=== PATIENT | female | born 1980 | race Caucasian/White ===

== ENCOUNTER → 2016-03-31 | Outpatient (CLI) | payer OTHER ==
[2016-03-31 08:12] LABS: Basophils # (A) 0.1 k/uL (0-0.2); Basophils % (A) 1 %; CH 28.7; CHCM 33.7; Eosinophils # (A) 0.1 k/uL (0-0.7); Eosinophils % (A) 1 %; HCT 45.3 % (34.0-46.0); HDW 2.82; HGB 14.6 gm/dL (11.4-16.0); Luc % (Auto) 1; Lymphocytes # (A) 2.1 k/uL (1.0-4.8); Lymphocytes % (A) 28 %; MCH 27.6 pg (25.0-35.0); MCHC 32.2 g/dL (31.0-37.0); MCV 85.8 fL (80.0-100.0); Mean Platelet Volume 7.2; Monocytes # (A) 0.4 k/uL (0-1.0); Monocytes % (A) 6 %; Neutrophils # (A) 4.7 k/uL (1.3-7.7); Neutrophils % (A) 63 %; RBC 5.28 m/uL (3.80-5.40); RDW 13.7 % (11.5-15.5); WBC 7.5 k/uL (3.8-10.6); WBC (Perox) 7.24
[2016-03-31 08:38] LABS: ALT 60 U/L (9-52); AST 32 U/L (14-36); Alkaline Phosphatase 65 U/L (38-126); Anion Gap 13 mmol/L; Blood Urea Nitrogen 14 mg/dL (7-17); Calcium 9.9 mg/dL (8.4-10.2); Carbon Dioxide 26 mmol/L (22-30); Chloride 105 mmol/L (98-107); Cholesterol 205 mg/dL (<200); Glucose 99 mg/dL (74-99); HDL Cholesterol 47 mg/dL (40-60); Non-African American GFR(MDRD) >60 (>60 ml/min/1.73 sqM); Potassium 4.8 mmol/L (3.5-5.1); Sodium 144 mmol/L (137-145); Total Bilirubin 0.5 mg/dL (0.2-1.3); Total Protein 7.8 g/dL (6.3-8.2); Triglycerides 135 mg/dL (<150)
== END | disposition home or self-care (01) ==
LOC: MERGE 07:28 → LABWHC1 07:28
PROVIDERS: ATTEND Family Medicine
DX: Z00.00 Encounter for general adult medical examination without abnormal findings (principal)
CPT/HCPCS: 36415; 80053; 80061; 84443; 85025

== ENCOUNTER → 2016-04-01 | Outpatient (CLI) | payer OTHER ==
--- NOTE | 2016-04-01 22:53 | MR ---
EXAMINATION TYPE: MR angio head wo con DATE OF EXAM: 04/01/2016 6:36 PM COMPARISON: NONE HISTORY: Headaches,pseudotumors,papilledema Utilizing 3-D [id number] intracranial MRA of the r[place] of [place] was performed. The vertebrobas ilar and carotid systems are patent. There is no sizable aneurysm or vascular malformation. 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 Vertebral arteries are symmetric in size. IMPRESSION: 1. No evidence of vascular malformation or sizable aneurysm.
--- NOTE | 2016-04-01 22:53 | MR ---
MRI of the brain with and without contrast HISTORY: Headaches.T1-weighted sagittal, T2, FLAIR, and diffusion axial, postcontrast T1 axial and co hakeem views of the brain are submitted. CONTRAST: 15 cc MultiHance COMPARISON: CT brain 06/27/2010 FINDINGS: There is no evidence of acute ischemia. The ventricles, basal cisterns, and sulci overlying the co nvexities are consistent with the patient's age. There is no mass effect or enhancing mass. Craniocervical junction is maintained. There is a partially empty sella turcica. No cerebellopontine angle mass. There is normal enhancement of the visualized vasculature including t he dural venous sinuses. No enhancing mass. No midline shift. There are changes of chronic sinusitis. White matter: There are approximately 15 areas of abnormal signal throughout the white matter. Lesion s measure 5 mm or less. No enhancing lesions. No lesions perpendicular to the ventricular system. No callosal lesions. IMPRESSION: 1. No acute intracranial process. 2. Nonspecific very mild white matter changes. Differential include migraine headaches. Demyelinating process or remote microvascular ischemia not excluded. 3. Extensive chronic sinusitis.
== END | disposition home or self-care (01) ==
LOC: RADMRIMAIN 17:40 → MERGE 17:45
PROVIDERS: ATTEND Psychiatry & Neurology Neurology
DX: R90.82 White matter disease, unspecified (principal); J32.9 Chronic sinusitis, unspecified
CPT/HCPCS: 70544; 70553; A9577

== ENCOUNTER 2016-04-22 11:20 | Day surgery (SDC) | payer OTHER ==
[~2016-04-22 11:20] MED LIST: SODIUM CHLORIDE 0.9% 250 ML in EMPTY BAG 1 BAG IV PRN; SODIUM CHLORIDE 0.9% 500 ML in EMPTY BAG 1 BAG IV PRN
[2016-04-22 11:51] VITALS: TEMP 97.7
[2016-04-22] MEDS ORDERED: LACTATED RINGERS 1,000 ML IV SCH (12:15)
[2016-04-22 14:00] VITALS: BP 136/83; PULSE 73; RESP 14
[2016-04-22 14:55] LABS: Glucose,CSF 54 mg/dL (40-70)
[2016-04-22 15:01] LABS: Appearance,CSF Clear
--- NOTE | 2016-04-22 15:12 | P.PCN ---
Date of Procedure: 04/22/16 Procedure(s) Performed: Preoperative diagnosis: Pseudotumor cerebri . Post operative diagnoses: Pseudotumor cerebri. Anesthesia local infiltration with lidocaine 1% 2 mL. and Versed 2 mg and fentanyl 100 g Condition: stable Complication: none. Indication for the procedure= 35 years old female with a history of headache, and she was evaluated by a neurologist Dr. Win and he suspected that patient had pseudotumor cerebri, and they recommend lumbar puncture with removal of 14- 20 mL of cerebrospinal fluid Description of the procedure procedure risk and benefits discussed with the patient , consent signed. Patient and the procedure area placed in left lateral position , back prepped with chlorhexidine 3 times been local infiltration of the skin and subcutaneous tissue with lidocaine 1% 2 mL for skin and subcu interstitial frustrations at L4- 5 levels then 22-gauge Quincke- type needle advanced slowly at L4- 5 interlaminar space there was positive cerebrospinal fluid which was clear, no heme, no paresthesia , the opening pressure was 50 cm of water ,total of 20 ML of clear cerebrospinal fluid collected in 4 different tubes , the closing pressure was 19 cm of water , then the needle removed and a Band-Aid applied and patient tolerated the procedure well without any complications. Opening pressure = 50 cm of water. Closing pressure= 19 cm of water. Volume removed = 20 mL of clear cerebrospinal fluid
[2016-04-22] MEDS ORDERED: MIDAZOLAM 2 MG/2 ML VIAL IV ONE (23:00)
[2016-04-22] MEDS ORDERED: fentaNYL (PF) 50 MCG/ML 2 ML AMP IV ONE (23:00)
== END 2016-04-22 14:55 ==
LOC: PROCWHC3 11:20
PROVIDERS: ATTEND Psychiatry & Neurology Neurology
DX: G93.2 Benign intracranial hypertension (principal)
CPT/HCPCS: 88108; 84157; 82945; 89050; 81025; 62270; J2250; J3010

== ENCOUNTER 2017-05-04 19:47 | Emergency (ER) | payer OTHER ==
[2017-05-04 19:55] VITALS: RESP 18
--- NOTE | 2017-05-04 20:19 | ED ---
Upper Extremity HPI - General Chief Complaint: Extremity Injury, Upper Stated Complaint: [facility] FINGER INJURY Time Seen by Provider: 05/04/17 19:56 Source: patient, RN notes reviewed, old records reviewed Mode of arrival: ambulatory Limitations: no limitations - History of Present Illness Initial Comments: This patient is a 36-year-old female with chief complaint of right distal middle finger pain. Patient reports that at work today she slammed her finger tip of her finger in a door. She reports she has small abrasion over the edge of the nail bed. She reports that her nail bed is intact. She states that she has range of motion. She is concerned due to the swelling and thought that there may be a small fracture. She denies any other symptoms. - Related Data Previous Rx's Medication Instructions Recorded Ciprofloxacin HCl [Cipro] 500 mg PO Q12HR #14 tablet 03/03/17 HYDROcodone/APAP 5-325MG [Bergoo 1 - 2 tab PO Q4H PRN #15 tab 03/03/17 5-325] Ketorolac [Toradol] 10 mg PO Q6HR #20 tab 03/03/17 Ondansetron Odt [Zofran Odt] 4 mg PO Q8HR PRN #12 tab 03/03/17 Tamsulosin [Flomax] 0.4 mg PO DAILY #7 cap 03/03/17 Allergies Allergy/AdvReac Type Severity Reaction Status Date / Time No Known Allergies Allergy Verified 05/04/17 19:55 Review of Systems ROS Statement: Those systems with pertinent positive or pertinent negative responses have been documented in the HPI. ROS Other: All systems not noted in ROS Statement are negative. 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 Absent: scleral icterus, conjunctival injection, periorbital swelling ENT exam: Present: normal exam, mucous membranes moist Neck exam: Present: normal inspection. Absent: tenderness, meningismus, lymphadenopathy Respiratory exam: Present: normal lung sounds bilaterally. Absent: respiratory distress, wheezes, rales, rhonchi, stridor Cardiovascular Exam: Present: regular rate, normal rhythm, normal heart sounds. Absent: systolic murmur, diastolic murmur, rubs, gallop, clicks GI/Abdominal exam: Present: soft, normal bowel sounds. Absent: distended, tenderness, guarding, rebound, rigid Extremities exam: Present: normal inspection, full ROM, normal capillary refill. Absent: tenderness, pedal edema, joint swelling, calf tenderness Right Hand Wrist exam: Present: full ROM, swelling (over distal right tip of 3rd finger). Absent: normal inspection (abrasion over distal dorsum of right middle finger) Hand L/R Front: 1 - other (bruise) Hand L/R Back: 1 - small abrasion Back exam: Present: normal inspection Neurological exam: Present: alert, oriented X3, CN II-XII intact Psychiatric exam: Present: normal affect, normal mood Skin exam: Present: warm, dry, intact, normal color. Absent: rash Course Vital Signs 05/04/17 19:52 Temperature 97.6 F Pulse Rate 82 Respiratory 18 Rate Blood Pressure 177/92 O2 Sat by Pulse 97 Oximetry Medical Decision Making - Medical Decision Making Patient is a 36-year-old female chief complaint of slamming her right middle finger in a door work today. She has a small abrasion over the dorsum of the proximal phalanx. Patient x-ray was reviewed and negative for acute process. She does have range of motion including flexion and extension, no evidence of tendon disruption. Patient informed of these results will this earlier gait. Discussed that appears to be closing well at this time. Discussed icing it and taking Motrin however pain. Patient is history plan will comply. Return parameters were discussed. - Radiology Data Radiology results: report reviewed Right middle finger x-rays negative for any acute fracture. Disposition Clinical Impression: Fingertip contusion, Finger abrasion Disposition: HOME SELF-CARE Condition: Good Instructions: Abrasion (ED) Additional Instructions: As well as a little follow-up on its own. Keep the wound covered. Wear the splint. Return to emergency department if any alarming signs or symptoms occur. Referrals: Mauricio Plascencia MD [Primary Care Provider] - 1-2 days Time of Disposition: 20:46
--- NOTE | 2017-05-04 20:19 | XR ---
EXAMINATION TYPE: XR finger RT DATE OF EXAM: 05/04/2017 COMPARISON: NONE HISTORY: Pain after an injury TECHNIQUE: 3 views FINDINGS: I see no definite fracture nor dislocation. Joint spaces are fairly normal. IMPRESSION: Negative right middle finger exam.
[2017-05-04] MEDS ORDERED: TOPICAL SKIN ADHESIVE 1 EACH AMP TOPICAL ONE (20:35)
[2017-05-04 20:58] VITALS: BP 143/94; PULSE 80; TEMP 98.2
== END 2017-05-04 20:59 | disposition home or self-care (01) ==
LOC: EC 19:47
DX: S60.031A Contusion of right middle finger without damage to nail, initial encounter (principal); Z87.891 Personal history of nicotine dependence; W23.0XXA Caught, crushed, jammed, or pinched between moving objects, initial encounter; Y99.0 Civilian activity done for income or pay
CPT/HCPCS: 99284

== ENCOUNTER → 2018-02-28 | Outpatient (CLI) | payer OTHER ==
[2018-02-28 08:45] LABS: Basophils % (A) 1 %; Eosinophils # (A) 0.1 k/uL (0-0.7); Eosinophils % (A) 1 %; HCT 42.5 % (34.0-46.0); HGB 14.8 gm/dL (11.4-16.0); Lymphocytes # (A) 3.1 k/uL (1.0-4.8); Lymphocytes % (A) 41 %; MCH 29.7 pg (25.0-35.0); MCHC 34.9 g/dL (31.0-37.0); MCV 85.3 fL (80.0-100.0); Mean Platelet Volume 6.5; Monocytes # (A) 0.4 k/uL (0-1.0); Monocytes % (A) 5 %; Neutrophils # (A) 3.8 k/uL (1.3-7.7); Neutrophils % (A) 51 %; Platelet Count 248 k/uL (150-450); RBC 4.99 m/uL (3.80-5.40); RDW 13.7 % (11.5-15.5); WBC 7.6 k/uL (3.8-10.6)
[2018-02-28 09:50] LABS: Erythrocyte Sedimentation Rate 8 mm/hr (0-20)
[2018-02-28 15:59] LABS: Iron Saturation 18.58 (12.00-45.00)
[2018-02-28 16:07] LABS: Vitamin D 25 Hydroxy 18.8 ng/mL (30.0-100.0)
[2018-02-28 16:15] LABS: Albumin 4.6 g/dL (3.80-4.90); Albumin/Globulin Ratio 2.09 (1.20-2.10); Anion Gap 9.2 mmol/L (4.00-12.00); Calcium 9.5 mg/dL (8.7-10.3); Carbon Dioxide 22.8 mmol/L (21.6-31.8); Globulin 2.2 g/dL (2.1-3.7); Total Bilirubin 0.4 mg/dL (0.3-1.2); Total Protein 6.8 g/dL (6.2-8.2)
== END | disposition home or self-care (01) ==
LOC: LABWHC1 07:47
PROVIDERS: ATTEND Family Medicine
DX: Z00.00 Encounter for general adult medical examination without abnormal findings (principal); R53.83 Other fatigue
CPT/HCPCS: 36415; 80053; 80061; 82306; 82607; 82728; 83540; 83550; 84443; 85025; 85652

== ENCOUNTER → 2018-03-02 | Outpatient (CLI) | payer OTHER ==
--- NOTE | 2018-03-03 10:12 | MM ---
Reason for exam: screening (asymptomatic). Baseline mammogram. History: Patient is nulliparous. Family history of breast cancer in maternal grandmother at age 45. Physical Findings: Nurse did not find any significant physical abnormalities on exam. MG 3D Screening Mammo W/Cad Bilateral CC and MLO view(s) were taken. There are scattered fibroglandular densities. Finding: There is a 9 mm circumscribed round mass in the lower inner quadrant, anterior middle position of the left breast. These results were verbally communicated with the patient and result sheet given to the patient on 03/02/18. ASSESSMENT: Incomplete: need additional imaging evaluation, BI-RAD 0 RECOMMENDATION: Ultrasound of the left breast.
--- NOTE | 2018-03-03 10:13 | USB ---
Reason for exam: additional evaluation requested from abnormal screening. History: Patient is nulliparous. Family history of breast cancer in maternal grandmother at age 45. Physical Findings: Breast exam preformed at baseline screening. US Breast Workup Limited LT Left limited breast ultrasound including focal area of concern, retroareolar and axilla is negative. These results were verbally communicated with the patient and result sheet given to the patient on 03/02/18. ASSESSMENT: Incomplete: need additional imaging evaluation, BI-RAD 0 RECOMMENDATION: Special view mammogram of the left breast.
--- NOTE | 2018-03-03 10:15 | MM ---
Reason for exam: additional evaluation requested from abnormal screening. History: Patient is nulliparous. Family history of breast cancer in maternal grandmother at age 45. Physical Findings: Breast exam preformed at baseline screening. MG 3D Work Up W/Cad LT Spot compression CC, spot compression MLO, and LM view(s) were taken of the left breast. There are scattered fibroglandular densities. The focal density is not as focal on LM view and tomosynthesis. These results were verbally communicated with the patient and result sheet given to the patient on 03/02/18. ASSESSMENT: Probably benign, BI-RAD 3 RECOMMENDATION: Follow-up diagnostic mammogram of the left breast in 6 months.
== END ==
LOC: RADMAMWWP 14:57
PROVIDERS: ATTEND Obstetrics & Gynecology
DX: Z12.31 Encounter for screening mammogram for malignant neoplasm of breast (principal); R92.8 Other abnormal and inconclusive findings on diagnostic imaging of breast
CPT/HCPCS: 77061; 77063; 77065; 77067

== ENCOUNTER → 2018-10-16 | Outpatient (CLI) | payer OTHER ==
--- NOTE | 2018-10-19 09:59 | MM ---
Reason for exam: follow-up at short interval from prior study. Last mammogram was performed 8 months ago. History: Patient is nulliparous. Family history of breast cancer in maternal grandmother at age 45. Physical Findings: Nurse did not find any significant physical abnormalities on exam. MG 3D Diag Mammo W/Cad LT CC and MLO view(s) were taken of the left breast. Prior study comparison: March 02, 2018, left breast MG 3d work up w/cad LT. March 02, 2018, bilateral MG 3d screening mammo w/cad. There are scattered fibroglandular densities. Circumscribed 9mm 7 o'clock mass middle depth left breast redemonstrated. Unchanged. Additional follow up recommended. Not seen on prior ultrasound. These results were verbally communicated with the patient and result sheet given to the patient on 10/16/18. ASSESSMENT: Probably benign, BI-RAD 3 RECOMMENDATION: Follow-up diagnostic mammogram of both breasts in 4 months. Back on schedule for February 2019. Total 1 year follow up left breast.
== END | disposition home or self-care (01) ==
LOC: RADMAMWWP 15:52
PROVIDERS: ATTEND Obstetrics & Gynecology
DX: R92.8 Other abnormal and inconclusive findings on diagnostic imaging of breast (principal)
CPT/HCPCS: 77061; 77065

== ENCOUNTER → 2020-04-03 | Outpatient (CLI) | payer OTHER ==
--- NOTE | 2020-04-04 08:21 | MM ---
Reason for exam: clinical finding. Last mammogram was performed 1 year and 6 months ago. History: Patient is nulliparous. Family history of breast cancer in maternal grandmother at age 45. Took hormonal contraceptives for 11 years beginning at age 18. Physical Findings: Nurse did not find any significant physical abnormalities on exam. MG 3D Diag Mammo W/Cad GERMAN Bilateral CC and MLO view(s) were taken. Prior study comparison: October 16, 2018, left breast MG 3d diag mammo w/cad LT. March 02, 2018, left breast MG 3d work up w/cad LT. There are scattered fibroglandular densities. There is chronic nodularity in the left breast. Central right CC asymmetric density appears to disperse on additional views. Precautionary 6 month follow up mammogram. Otherwise, no significant changes. These results were verbally communicated with the patient and result sheet given to the patient on 04/03/20. ASSESSMENT: Incomplete: need additional imaging evaluation, BI-RAD 0 RECOMMENDATION: Ultrasound of the left breast. (at pain)
--- NOTE | 2020-04-04 08:23 | USB ---
Reason for exam: additional evaluation requested from abnormal screening. History: Patient is nulliparous. Family history of breast cancer in maternal grandmother at age 45. Took hormonal contraceptives for 11 years beginning at age 18. US Breast Limited LT Left limited breast ultrasound including focal area of concern, retroareolar and axilla demonstrates no cystic or solid lesion seen. Scanned 12-3 o'clock. These results were verbally communicated with the patient and result sheet given to the patient on 04/03/20. ASSESSMENT: Probably benign, BI-RAD 3 RECOMMENDATION: Follow-up diagnostic mammogram in 6 months. (right breast)
== END | disposition home or self-care (01) ==
LOC: RADMAMWWP 14:57
PROVIDERS: ATTEND Obstetrics & Gynecology
DX: N64.52 Nipple discharge (principal); R92.8 Other abnormal and inconclusive findings on diagnostic imaging of breast
CPT/HCPCS: 77062; 77066

== ENCOUNTER → 2020-08-15 | Outpatient (CLI) | payer OTHER ==
--- NOTE | 2020-08-15 10:14 | XR ---
EXAMINATION TYPE: XR shoulder limited LT DATE OF EXAM: 08/15/2020 CLINICAL HISTORY: Pain in the anterior proximal humerus TECHNIQUE: 2 views of the left shoulder, limited are obtained. COMPARISON: None. FINDINGS: No evidence of acute fracture or dislocation left shoulder. Glenohumeral joint and acromioh umeral space appear unremarkable. Acromioclavicular joint appears unremarkable. Left lung apex is gwen ar the visualized portions. IMPRESSION: 1. No evidence of fracture or dislocation of the left shoulder on this limited study.
[2020-08-15 10:31] LABS: Basophils # (A) 0.1 k/uL (0-0.2); Basophils % (A) 1 %; Eosinophils # (A) 0.1 k/uL (0-0.7); Eosinophils % (A) 1 %; HCT 44.3 % (34.0-46.0); HGB 14.4 gm/dL (11.4-16.0); Lymphocytes # (A) 2.3 k/uL (1.0-4.8); Lymphocytes % (A) 33 %; MCH 27.8 pg (25.0-35.0); MCHC 32.6 g/dL (31.0-37.0); MCV 85.3 fL (80.0-100.0); Mean Platelet Volume 7.1; Monocytes # (A) 0.4 k/uL (0-1.0); Monocytes % (A) 6 %; Neutrophils # (A) 4.2 k/uL (1.3-7.7); Neutrophils % (A) 59 %; Platelet Count 261 k/uL (150-450); RBC 5.19 m/uL (3.80-5.40); RDW 13.6 % (11.5-15.5); WBC 7.1 k/uL (3.8-10.6)
[2020-08-15 10:44] LABS: ALT 24 U/L (4-34); AST 25 U/L (14-36); African American GFR (CKD) >90 (>60 ml/min/1.73 sqM); Albumin 4.8 g/dL (3.5-5.0); Alkaline Phosphatase 58 U/L (38-126); Anion Gap 8 mmol/L; Blood Urea Nitrogen 11 mg/dL (7-17); Calcium 9.7 mg/dL (8.4-10.2); Carbon Dioxide 26 mmol/L (22-30); Chloride 106 mmol/L (98-107); Glucose 89 mg/dL (74-99); Non-African American GFR(CKD) 88 (>60 ml/min/1.73 sqM); Potassium 4.3 mmol/L (3.5-5.1); Sodium 140 mmol/L (137-145); Total Bilirubin 0.7 mg/dL (0.2-1.3); Total Protein 7.7 g/dL (6.3-8.2)
[2020-08-16 03:26] LABS: Chol/HDL Ratio 6.26; Cholesterol 263 mg/dL (0-200); LDL Cholesterol,Calculated 193.8 mg/dL (0.0-131.0)
== END | disposition home or self-care (01) ==
LOC: RADXRMAIN 09:06
PROVIDERS: ATTEND Family Medicine
DX: M25.512 Pain in left shoulder (principal)
CPT/HCPCS: 80053; 80061; 82306; 84443; 85025

== ENCOUNTER → 2020-10-03 | Outpatient (CLI) | payer OTHER ==
--- NOTE | 2020-10-03 12:11 | MM ---
Reason for exam: follow-up at short interval from prior study. Last mammogram was performed 6 months ago. History: Patient is nulliparous. Family history of breast cancer in maternal grandmother at age 45. Took hormonal contraceptives for 11 years beginning at age 18. Physical Findings: Nurse did not find any significant physical abnormalities on exam. MG 3D Diag Mammo W/Cad RT CC and MLO view(s) were taken of the right breast. Prior study comparison: April 03, 2020, bilateral MG 3d diag mammo w/cad GERMAN. October 16, 2018, left breast MG 3d diag mammo w/cad LT. There are scattered fibroglandular densities. Previous right asymmetry no longer seen. These results were verbally communicated with the patient and result sheet given to the patient on 10/03/20. ASSESSMENT: Negative, BI-RAD 1 RECOMMENDATION: Routine screening mammogram of both breasts in 6 months. Back on schedule for March 2020.
== END | disposition home or self-care (01) ==
LOC: RADMAMWWP 10:27
PROVIDERS: ATTEND Obstetrics & Gynecology
DX: N64.89 Other specified disorders of breast (principal)
CPT/HCPCS: 77061; 77065

== ENCOUNTER 2020-11-22 21:50 | Emergency (ER) | payer OTHER ==
[2020-11-22 21:57] VITALS: TEMP 98.6
[2020-11-22] MEDS ORDERED: ASPIRIN 81 MG PO STA (22:17)
--- NOTE | 2020-11-22 22:38 | ED ---
Recheck HPI - General Chief Complaint: Recheck/Abnormal Lab/Rx Stated Complaint: elevated BP Time Seen by Provider: 11/22/20 21:58 Source: patient Mode of arrival: ambulatory Limitations: no limitations - History of Present Illness Initial Comments: 40 year-old female patient presents to the emergency department for evaluation of elevated blood pressure. She also reports chest pressure and nausea that has been present throughout the day. States symptoms started 3 days ago at work. States she has been checking her blood pressure frequently and it has been elevated. She denies any shortness of breath, cough, or congestion. Denies fever or chills. She also reports urinary frequency. She denies history of smoking. Denies family history of CAD but reports mother has had CVA. Patient denies any recent rash, cough, shortness of breath, chest pain, abdominal pain, diarrhea, constipation, back pain, numbness, tingling, dizziness, weakness, headache, visual changes, or any other complaints. She does take diamox for pseudotumor cerebri. - Related Data Home Medications Medication Instructions Recorded Confirmed Cholecalciferol [Vitamin D3 (25 50 mcg PO DAILY 11/22/20 11/22/20 Mcg = 1000 Iu)] Cyanocobalamin (Vitamin B-12) 1,000 mcg PO DAILY 11/22/20 11/22/20 [Vitamin B-12] [place]-3 Fatty Acids/Fish Oil [Fish 1,000 mg PO DAILY 11/22/20 11/22/20 Oil 1,000 mg Softgel] acetaZOLAMIDE [Diamox] 250 mg PO DAILY 11/22/20 11/22/20 acetaZOLAMIDE [Diamox] 250 mg PO HS PRN 11/22/20 11/22/20 busPIRone HCL [Buspar] 7.5 mg PO BID 11/22/20 11/22/20 Allergies Allergy/AdvReac Type Severity Reaction Status Date / Time No Known Allergies Allergy Verified 11/22/20 21:50 Review of Systems ROS Statement: Those systems with pertinent positive or pertinent negative responses have been documented in the HPI. ROS Other: All systems not noted in ROS Statement are negative. 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 Vital signs upon presentation are temperature 98.6F, pulse 83, respirations 18, blood pressure 140/91, pulse ox 97% on room air.) ENT exam: Present: normal exam, normal oropharynx, mucous membranes moist Respiratory exam: Present: normal lung sounds bilaterally. Absent: respiratory distress, wheezes, rales, rhonchi, stridor Cardiovascular Exam: Present: regular rate, normal rhythm, normal heart sounds. Absent: systolic murmur, diastolic murmur, rubs, gallop, clicks GI/Abdominal exam: Present: soft, normal bowel sounds. Absent: distended, tenderness, guarding, rebound, rigid Neurological exam: Present: alert, oriented X3, CN II-XII intact Psychiatric exam: Present: normal affect, normal mood Skin exam: Present: warm, dry, intact, normal color. Absent: rash Course Vital Signs 11/22/20 11/22/20 21:51 23:08 Temperature 98.6 F Pulse Rate 83 78 Respiratory 18 16 Rate Blood Pressure 148/91 147/96 O2 Sat by Pulse 97 95 Oximetry Medical Decision Making - Medical Decision Making 40-year-old female patient presented to the emergency department today for evaluation of chest pressure and high blood pressure. Physical examination is unremarkable. She has been having symptoms since Tuesday. EKG unremarkable. Chest xray negative. Heart score is 1 which makes her low risk. BP here has been 140-150 systolic. She will be discharged to follow up with her primary care p hari for recheck in 1-2 days for recheck. She is instructed to keep a log of blood pressures for her physician. Return paramters are discussed in detail. She verbalizes understanding and agrees with this plan. Case discussed with my attending Dr. Mckenzie. - Lab Data Result diagrams: 11/22/20 22:36 11/22/20 22:36 Lab Results 11/22/20 11/22/20 11/22/20 Range/Units 22:36 22:36 22:36 WBC 7.6 (3.8-10.6) k/uL RBC 5.03 (3.80-5.40) m/uL Hgb 14.6 (11.4-16.0) gm/dL Hct 43.6 (34.0-46.0) % MCV 86.6 (80.0-100.0) fL MCH 29.0 (25.0-35.0) pg MCHC 33.4 (31.0-37.0) g/dL RDW 13.3 (11.5-15.5) % Plt Count 309 (150-450) k/uL MPV 6.9 Neutrophils % 55 % Lymphocytes % 31 % Monocytes % 5 % Eosinophils % 7 % Basophils % 1 % Neutrophils # 4.2 (1.3-7.7) k/uL Lymphocytes # 2.4 (1.0-4.8) k/uL Monocytes # 0.4 (0-1.0) k/uL Eosinophils # 0.5 (0-0.7) k/uL Basophils # 0.0 (0-0.2) k/uL PT 9.5 (9.0-12.0) sec INR 0.9 (<1.2) APTT 22.5 (22.0-30.0) sec Sodium 139 (137-145) mmol/L Potassium 3.8 (3.5-5.1) mmol/L Chloride 109 H (98-107) mmol/L Carbon Dioxide 20 L (22-30) mmol/L Anion Gap 10 mmol/L BUN 14 (7-17) mg/dL Creatinine 0.83 (0.52-1.04) mg/dL Est GFR (CKD-EPI)AfAm >90 (>60 ml/min/1.73 sqM) Est GFR (CKD-EPI)NonAf 89 (>60 ml/min/1.73 sqM) Glucose 110 H (74-99) mg/dL Calcium 9.5 (8.4-10.2) mg/dL Magnesium 2.0 (1.6-2.3) mg/dL Total Bilirubin 0.1 L (0.2-1.3) mg/dL AST 19 (14-36) U/L ALT 15 (4-34) U/L Alkaline Phosphatase 58 (38-126) U/L Troponin I (0.000-0.034) ng/mL Total Protein 7.2 (6.3-8.2) g/dL Albumin 4.3 (3.5-5.0) g/dL Lipase 150 (23-300) U/L Urine Color Urine Appearance (Clear) Urine pH (5.0-8.0) Ur Specific [place] (1.001-1.035) Urine Protein (Negative) Urine Glucose (UA) (Negative) Urine Ketones (Negative) Urine Blood (Negative) Urine Nitrite (Negative) Urine Bilirubin (Negative) Urine Urobilinogen (<2.0) mg/dL Ur Leukocyte Esterase (Negative) Urine RBC (0-5) /hpf Urine WBC (0-5) /hpf Ur Squamous Epith Cells (0-4) /hpf Urine Bacteria (None) /hpf Urine Mucus (None) /hpf Urine HCG, Qual (Not Detectd) 11/22/20 11/22/20 11/22/20 Range/Units 22:36 22:50 22:50 WBC (3.8-10.6) k/uL RBC (3.80-5.40) m/uL Hgb (11.4-16.0) gm/dL Hct (34.0-46.0) % MCV (80.0-100.0) fL MCH (25.0-35.0) pg MCHC (31.0-37.0) g/dL RDW (11.5-15.5) % Plt Count (150-450) k/uL MPV Neutrophils % % Lymphocytes % % Monocytes % % Eosinophils % % Basophils % % Neutrophils # (1.3-7.7) k/uL Lymphocytes # (1.0-4.8) k/uL Monocytes # (0-1.0) k/uL Eosinophils # (0-0.7) k/uL Basophils # (0-0.2) k/uL PT (9.0-12.0) sec INR (<1.2) APTT (22.0-30.0) sec Sodium (137-145) mmol/L Potassium (3.5-5.1) mmol/L Chloride (98-107) mmol/L Carbon Dioxide (22-30) mmol/L Anion Gap mmol/L BUN (7-17) mg/dL Creatinine (0.52-1.04) mg/dL Est GFR (CKD-EPI)AfAm (>60 ml/min/1.73 sqM) Est GFR (CKD-EPI)NonAf (>60 ml/min/1.73 sqM) Glucose (74-99) mg/dL Calcium (8.4-10.2) mg/dL Magnesium (1.6-2.3) mg/dL Total Bilirubin (0.2-1.3) mg/dL AST (14-36) U/L ALT (4-34) U/L Alkaline Phosphatase (38-126) U/L Troponin I <0.012 (0.000-0.034) ng/mL Total Protein (6.3-8.2) g/dL Albumin (3.5-5.0) g/dL Lipase (23-300) U/L Urine Color Light Yellow Urine Appearance Clear (Clear) Urine pH 5.0 (5.0-8.0) Ur Specific [place] 1.013 (1.001-1.035) Urine Protein Negative (Negative) Urine Glucose (UA) Negative (Negative) Urine Ketones Negative (Negative) Urine Blood Large H (Negative) Urine Nitrite Negative (Negative) Urine Bilirubin Negative (Negative) Urine Urobilinogen <2.0 (<2.0) mg/dL Ur Leukocyte Esterase Negative (Negative) Urine RBC 9 H (0-5) /hpf Urine WBC 1 (0-5) /hpf Ur Squamous Epith Cells 2 (0-4) /hpf Urine Bacteria Rare H (None) /hpf Urine Mucus Rare H (None) /hpf Urine HCG, Qual Not Detected (Not Detectd) - EKG Data -: EKG Interpreted by Ia EKG Comments: EKG obtained at 2214 shows normal sinus rhythm with a ventricular rate of 83, NE interval 166, QRS duration 108, QT 372, QTc 437. No evidence of ST elevation or depression. - Radiology Data Radiology results: report reviewed, image reviewed Two-view x-ray of the chest is obtained. Report was reviewed in its entirety. Impression by Dr. Gonzalez shows normal chest. No change. Disposition Clinical Impression: High blood pressure, Chest pain Disposition: HOME SELF-CARE Condition: Good Instructions (If sedation given, give patient instructions): Chest Pain (ED), Hypertension (ED) Additional Instructions: Keep log of your blood pressures. Follow up with your primary care physician for recheck in 1-2 days. Return to the emergency department for any new, worsening, or concerning symptoms. Is patient prescribed a controlled substance at d/c from ED?: No Referrals: Kurt Domingo MD [Primary Care Provider] - 1-2 days Time of Disposition: 23:44
--- NOTE | 2020-11-22 22:45 | XR ---
EXAMINATION TYPE: XR chest 2V DATE OF EXAM: 11/22/2020 COMPARISON: 06/27/2010 HISTORY: Chest pain TECHNIQUE: FINDINGS: Heart and mediastinum are normal. Lungs are clear. Diaphragm is normal. Bony thorax appears normal. IMPRESSION: Normal chest. No change.
[2020-11-22 23:09] VITALS: RESP 16
[2020-11-22 23:10] LABS: Basophils % (A) 1 %; Eosinophils # (A) 0.5 k/uL (0-0.7); Eosinophils % (A) 7 %; HCT 43.6 % (34.0-46.0); HGB 14.6 gm/dL (11.4-16.0); Lymphocytes # (A) 2.4 k/uL (1.0-4.8); Lymphocytes % (A) 31 %; MCHC 33.4 g/dL (31.0-37.0); MCV 86.6 fL (80.0-100.0); Mean Platelet Volume 6.9; Monocytes # (A) 0.4 k/uL (0-1.0); Monocytes % (A) 5 %; Neutrophils # (A) 4.2 k/uL (1.3-7.7); Neutrophils % (A) 55 %; Platelet Count 309 k/uL (150-450); RBC 5.03 m/uL (3.80-5.40); RDW 13.3 % (11.5-15.5); WBC 7.6 k/uL (3.8-10.6)
[2020-11-22 23:16] LABS: ALT 15 U/L (4-34); AST 19 U/L (14-36); African American GFR (CKD) >90 (>60 ml/min/1.73 sqM); Albumin 4.3 g/dL (3.5-5.0); Alkaline Phosphatase 58 U/L (38-126); Anion Gap 10 mmol/L; Blood Urea Nitrogen 14 mg/dL (7-17); Calcium 9.5 mg/dL (8.4-10.2); Carbon Dioxide 20 mmol/L (22-30); Chloride 109 mmol/L (98-107); Glucose 110 mg/dL (74-99); Lipase 150 U/L (23-300); Non-African American GFR(CKD) 89 (>60 ml/min/1.73 sqM); Potassium 3.8 mmol/L (3.5-5.1); Sodium 139 mmol/L (137-145); Total Bilirubin 0.1 mg/dL (0.2-1.3); Total Protein 7.2 g/dL (6.3-8.2)
[2020-11-22 23:21] LABS: Appearance,Urine Clear (Clear); Bacteria,Urine Rare /hpf; Bilirubin,Urine Negative (Negative); Blood,Urine Large (Negative); Color,Urine Light Yellow; Glucose,Urine (UA) Negative (Negative); Ketones,Urine Negative (Negative); Leukocyte Esterase,Urine Negative (Negative); Mucus,Urine Rare /hpf; Nitrite,Urine Negative (Negative); Protein,Urine Negative (Negative); RBC,Urine 9 /hpf (0-5); Specific Gravity,Urine 1.013 (1.001-1.035); Squamous Epithelial Cell,Urine 2 /hpf (0-4); Urobilinogen,Urine <2.0 mg/dL (<2.0); WBC,Urine 1 /hpf (0-5)
[2020-11-22 23:24] LABS: INR 0.9 (<1.2); Partial Thromboplastin Time 22.5 sec (22.0-30.0); Prothrombin Time 9.5 sec (9.0-12.0)
[2020-11-22] MEDS ORDERED: ALPRAZolam 0.25 MG TAB PO STA (23:43)
[2020-11-23] VITALS: BP 155/92; PULSE 80
== END 2020-11-22 23:54 | disposition home or self-care (01) ==
LOC: EC 21:50
DX: I10 Essential (primary) hypertension (principal)
CPT/HCPCS: 36415; 71046; 80053; 81001; 81025; 83690; 83735; 84484; 85025; 85610; 85730; 93005; 99285

== ENCOUNTER 2020-12-01 18:23 | Emergency (ER) | payer OTHER ==
--- NOTE | 2020-12-01 19:16 | ED ---
Weakness HPI - General Chief complaint: Weakness Stated complaint: weakness, fatigue Time Seen by Provider: 12/01/20 19:13 Source: patient Mode of arrival: ambulatory Limitations: no limitations - History of Present Illness Initial comments: 40-year-old female with history of anxiety presenting to the emergency department with a chief complaint of weakness. Patient reports she began to experience weakness earlier today while she was at work. Patient reports she felt clammy and generalized fatigue. Patient reports she felt tired. She reports feeling lightheaded but denies any loss of consciousness. She denies any dizziness where the room is spinning around her. She denies any visual changes, one-sided weakness or paresthesias. States she was evaluated about 2 weeks ago for elevated blood pressure and discharged with no acute findings. S he states that she saw her primary care physician. His ago and was given follow-up to cardiology. Patient denies any cough, URI like symptoms, abdominal pain, chest pain, urinary or vaginal symptoms. Denies possibility for . Patient is anxious and teary-eyed when talking. - Related Data Home Medications Medication Instructions Recorded Confirmed Cholecalciferol [Vitamin D3 (25 50 mcg PO DAILY 11/22/20 12/01/20 Mcg = 1000 Iu)] Cyanocobalamin (Vitamin B-12) 1,000 mcg PO DAILY 11/22/20 12/01/20 [Vitamin B-12] [place]-3 Fatty Acids/Fish Oil [Fish 1,000 mg PO DAILY 11/22/20 12/01/20 Oil 1,000 mg Softgel] acetaZOLAMIDE [Diamox] 250 mg PO DAILY 11/22/20 12/01/20 acetaZOLAMIDE [Diamox] 250 mg PO HS PRN 11/22/20 12/01/20 busPIRone HCL [Buspar] 7.5 mg PO BID 11/22/20 12/01/20 Allergies Allergy/AdvReac Type Severity Reaction Status Date / Time No Known Allergies Allergy Verified 12/01/20 18:59 Review of Systems ROS Statement: Those systems with pertinent positive or pertinent negative responses have been documented in the HPI. ROS Other: All systems not noted in ROS Statement are negative. 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 History of Any Multi-Drug Resistant Organisms: None Reported Past Surgical History: No Surgical Hx Reported Past Psychological History: No Psychological Hx Reported Smoking Status: Never smoker Past Alcohol Use History: Rare Past Drug Use History: None Reported General Exam Limitations: no limitations General appearance: alert, in no apparent distress, anxious, obese Head exam: Present: atraumatic, normocephalic, normal inspection Eye exam: Present: normal appearance Pupils: Present: normal accommodation ENT exam: Present: normal exam, normal oropharynx, mucous membranes moist, TM's normal bilaterally, normal external ear exam Neck exam: Present: normal inspection, full ROM. Absent: tenderness Respiratory exam: Present: normal lung sounds bilaterally. Absent: respiratory distress, wheezes, rales, rhonchi, stridor Cardiovascular Exam: Present: regular rate, normal rhythm, normal heart sounds. Absent: systolic murmur, diastolic murmur GI/Abdominal exam: Present: soft. Absent: distended, tenderness, guarding, rebound Extremities exam: Present: normal inspection, full ROM, normal capillary refill. Absent: tenderness, pedal edema, joint swelling Back exam: Present: normal inspection, full ROM. Absent: tenderness, CVA tenderness (R), CVA tenderness (L) Neurological exam: Present: alert, oriented X3, normal gait Psychiatric exam: Present: normal affect, anxious Skin exam: Present: warm, dry, intact, normal color Course Vital Signs 12/01/20 12/01/20 12/01/20 18:59 20:03 21:18 Temperature 98 F 98.1 F Pulse Rate 85 70 74 Respiratory 18 18 16 Rate Blood Pressure 159/102 145/94 142/96 O2 Sat by Pulse 97 97 97 Oximetry EKG Findings - EKG Comments: EKG Findings:: Right bundle-branch block. Ventricular rate 71, FL 174, QRS 112, QTC 432 Medical Decision Making - Medical Decision Making 1-year-old female with history of anxiety presenting to the emergency department with a chief complaint of weakness. Physical examination is unremarkable. Patient is anxious and teary eyed when talking. Laboratory work shows no acute findings. Initial troponins are negative. Patient has an appointment in 2 days with the jewelry mold maker. Patient was given option to be admitted for further medical management or to be discharged with outpatient follow-up. Patient chose to be discharged and will follow up with the jewelry mold maker on outpatient basis. Case was discussed with Dr. Duvall who also examined the patient and is in agreement with the treatment plan. Strict return parameters were thoroughly discussed the patient is an attending agreeable. - Lab Data Result diagrams: 12/01/20 19:33 12/01/20 19:33 Lab Results 12/01/20 12/01/20 12/01/20 Range/Units 19:33 19:33 19:33 WBC 10.0 (3.8-10.6) k/uL RBC 4.89 (3.80-5.40) m/uL Hgb 14.6 (11.4-16.0) gm/dL Hct 42.1 (34.0-46.0) % MCV 86.1 (80.0-100.0) fL MCH 29.9 (25.0-35.0) pg MCHC 34.7 (31.0-37.0) g/dL RDW 12.7 (11.5-15.5) % Plt Count 267 (150-450) k/uL MPV 7.2 Neutrophils % 63 % Lymphocytes % 28 % Monocytes % 4 % Eosinophils % 4 % Basophils % 1 % Neutrophils # 6.3 (1.3-7.7) k/uL Lymphocytes # 2.8 (1.0-4.8) k/uL Monocytes # 0.4 (0-1.0) k/uL Eosinophils # 0.4 (0-0.7) k/uL Basophils # 0.1 (0-0.2) k/uL PT 10.1 (9.0-12.0) sec INR 0.9 (<1.2) APTT 23.0 (22.0-30.0) sec Sodium (137-145) mmol/L Potassium (3.5-5.1) mmol/L Chloride (98-107) mmol/L Carbon Dioxide (22-30) mmol/L Anion Gap mmol/L BUN (7-17) mg/dL Creatinine (0.52-1.04) mg/dL Est GFR (CKD-EPI)AfAm (>60 ml/min/1.73 sqM) Est GFR (CKD-EPI)NonAf (>60 ml/min/1.73 sqM) Glucose (74-99) mg/dL Calcium (8.4-10.2) mg/dL Magnesium (1.6-2.3) mg/dL Total Bilirubin (0.2-1.3) mg/dL AST (14-36) U/L ALT (4-34) U/L Alkaline Phosphatase (38-126) U/L Troponin I (0.000-0.034) ng/mL Total Protein (6.3-8.2) g/dL Albumin (3.5-5.0) g/dL TSH (0.465-4.680) mIU/L Urine Color Colorless Urine Appearance Clear (Clear) Urine pH 6.0 (5.0-8.0) Ur Specific [place] 1.007 (1.001-1.035) Urine Protein Negative (Negative) Urine Glucose (UA) Negative (Negative) Urine Ketones Negative (Negative) Urine Blood Negative (Negative) Urine Nitrite Negative (Negative) Urine Bilirubin Negative (Negative) Urine Urobilinogen <2.0 (<2.0) mg/dL Ur Leukocyte Esterase Negative (Negative) Coronavirus (PCR) (Not Detectd) 12/01/20 12/01/20 12/01/20 Range/Units 19:33 19:33 19:33 WBC (3.8-10.6) k/uL RBC (3.80-5.40) m/uL Hgb (11.4-16.0) gm/dL Hct (34.0-46.0) % MCV (80.0-100.0) fL MCH (25.0-35.0) pg MCHC (31.0-37.0) g/dL RDW (11.5-15.5) % Plt Count (150-450) k/uL MPV Neutrophils % % Lymphocytes % % Monocytes % % Eosinophils % % Basophils % % Neutrophils # (1.3-7.7) k/uL Lymphocytes # (1.0-4.8) k/uL Monocytes # (0-1.0) k/uL Eosinophils # (0-0.7) k/uL Basophils # (0-0.2) k/uL PT (9.0-12.0) sec INR (<1.2) APTT (22.0-30.0) sec Sodium 138 (137-145) mmol/L Potassium 3.8 (3.5-5.1) mmol/L Chloride 106 (98-107) mmol/L Carbon Dioxide 20 L (22-30) mmol/L Anion Gap 12 mmol/L BUN 17 (7-17) mg/dL Creatinine 0.88 (0.52-1.04) mg/dL Est GFR (CKD-EPI)AfAm >90 (>60 ml/min/1.73 sqM) Est GFR (CKD-EPI)NonAf 83 (>60 ml/min/1.73 sqM) Glucose 93 (74-99) mg/dL Calcium 9.8 (8.4-10.2) mg/dL Magnesium 1.9 (1.6-2.3) mg/dL Total Bilirubin 0.5 (0.2-1.3) mg/dL AST 24 (14-36) U/L ALT 15 (4-34) U/L Alkaline Phosphatase 62 (38-126) U/L Troponin I <0.012 (0.000-0.034) ng/mL Total Protein 7.6 (6.3-8.2) g/dL Albumin 4.5 (3.5-5.0) g/dL TSH 1.890 (0.465-4.680) mIU/L Urine Color Urine Appearance (Clear) Urine pH (5.0-8.0) Ur Specific [place] (1.001-1.035) Urine Protein (Negative) Urine Glucose (UA) (Negative) Urine Ketones (Negative) Urine Blood (Negative) Urine Nitrite (Negative) Urine Bilirubin (Negative) Urine Urobilinogen (<2.0) mg/dL Ur Leukocyte Esterase (Negative) Coronavirus (PCR) Not Detected (Not Detectd) Disposition Clinical Impression: Weakness, Generalized fatigue Disposition: HOME SELF-CARE Condition: Stable Instructions (If sedation given, give patient instructions): Weakness (ED) Additional Instructions: Please return to the Emergency Department if symptoms worsen or any other conc erns. Is patient prescribed a controlled substance at d/c from ED?: No Referrals: Kurt Domingo MD [Primary Care Provider] - 1-2 days Time of Disposition: 21:10
[2020-12-01] MEDS ORDERED: SODIUM CHLORIDE 0.9% 1,000 ML IV STA (19:29)
[2020-12-01 19:48] LABS: Basophils # (A) 0.1 k/uL (0-0.2); Basophils % (A) 1 %; Eosinophils # (A) 0.4 k/uL (0-0.7); Eosinophils % (A) 4 %; HCT 42.1 % (34.0-46.0); HGB 14.6 gm/dL (11.4-16.0); Lymphocytes # (A) 2.8 k/uL (1.0-4.8); Lymphocytes % (A) 28 %; MCH 29.9 pg (25.0-35.0); MCHC 34.7 g/dL (31.0-37.0); MCV 86.1 fL (80.0-100.0); Mean Platelet Volume 7.2; Monocytes # (A) 0.4 k/uL (0-1.0); Monocytes % (A) 4 %; Neutrophils # (A) 6.3 k/uL (1.3-7.7); Neutrophils % (A) 63 %; Platelet Count 267 k/uL (150-450); RBC 4.89 m/uL (3.80-5.40); RDW 12.7 % (11.5-15.5)
[2020-12-01 19:50] LABS: Appearance,Urine Clear (Clear); Bilirubin,Urine Negative (Negative); Blood,Urine Negative (Negative); Color,Urine Colorless; Glucose,Urine (UA) Negative (Negative); Ketones,Urine Negative (Negative); Leukocyte Esterase,Urine Negative (Negative); Nitrite,Urine Negative (Negative); Protein,Urine Negative (Negative); Specific Gravity,Urine 1.007 (1.001-1.035); Urobilinogen,Urine <2.0 mg/dL (<2.0)
[2020-12-01 19:57] LABS: ALT 15 U/L (4-34); AST 24 U/L (14-36); African American GFR (CKD) >90 (>60 ml/min/1.73 sqM); Albumin 4.5 g/dL (3.5-5.0); Alkaline Phosphatase 62 U/L (38-126); Anion Gap 12 mmol/L; Blood Urea Nitrogen 17 mg/dL (7-17); Calcium 9.8 mg/dL (8.4-10.2); Carbon Dioxide 20 mmol/L (22-30); Chloride 106 mmol/L (98-107); Glucose 93 mg/dL (74-99); Magnesium 1.9 mg/dL (1.6-2.3); Non-African American GFR(CKD) 83 (>60 ml/min/1.73 sqM); Potassium 3.8 mmol/L (3.5-5.1); Sodium 138 mmol/L (137-145); Total Bilirubin 0.5 mg/dL (0.2-1.3); Total Protein 7.6 g/dL (6.3-8.2)
[2020-12-01 19:59] LABS: INR 0.9 (<1.2); Prothrombin Time 10.1 sec (9.0-12.0)
[2020-12-01 21:19] VITALS: BP 142/96; PULSE 74; RESP 16; TEMP 98.1
== END 2020-12-01 21:18 | disposition home or self-care (01) ==
LOC: EC 18:23
DX: R53.1 Weakness (principal); I10 Essential (primary) hypertension
CPT/HCPCS: 36415; 80053; 81003; 83735; 84443; 84484; 85025; 85610; 85730; 87635; 93005; 96360; 99285

== ENCOUNTER → 2021-01-28 | Outpatient (CLI) | payer OTHER ==
[2021-01-28 14:43] LABS: Basophils % (A) 0.7 %; Eosinophils % (A) 8.2 %; HCT 43.8 % (37.2-46.3); HGB 14.2 g/dL (12.0-15.0); Lymphocytes % (A) 27.6 %; MCH 28.6 pg (27.0-32.0); MCHC 32.4 g/dL (32.0-37.0); MCV 88.3 fL (80.0-97.0); Monocytes % (A) 5.7 %; Neutrophils % (A) 57.6 %; Platelet Count 314 X 10*3/uL (140-440); RBC 4.96 X 10*6/uL (4.10-5.20); RDW 13.5 % (11.5-14.5); WBC 8.42 X 10*3/uL (4.50-10.00)
[2021-01-28 14:44] LABS: Basophils # (A) 0.06 X 10*3/uL (0.00-0.10); Eosinophils # (A) 0.69 X 10*3/uL (0.04-0.35); Lymphocytes # (A) 2.32 X 10*3/uL (0.90-5.00); Monocytes # (A) 0.48 X 10*3/uL (0.20-1.00); Neutrophils # (A) 4.85 X 10*3/uL (1.80-7.70)
[2021-01-28 15:53] LABS: African American GFR (CKD) 125.9 (60.0-200.0); Albumin 4.5 g/dL (3.8-4.9); Albumin/Globulin Ratio 1.91 (1.60-3.17); BUN/Creat Ratio 16.95 Ratio (12.00-20.00); Blood Urea Nitrogen 11.8 mg/dL (9.0-27.0); Calcium 9.6 mg/dL (8.7-10.3); Carbon Dioxide 22.5 mmol/L (21.6-31.8); Chol/HDL Ratio 5.42 Ratio; Globulin 2.4 g/dL (1.6-3.3); HDL Cholesterol 45.9 mg/dL (40.00-60.00); LDL Cholesterol,Calculated 168.7 mg/dL (0.0-131.0); Non-African American GFR(CKD) 108.6 (60.0-200.0); Total Bilirubin 0.3 mg/dL (0.30-1.20); Total Protein 6.9 g/dL (6.2-8.2); VLDL Calculation 34.4 mg/dL (5.00-40.00)
== END | disposition home or self-care (01) ==
LOC: LABWHC1 07:38
PROVIDERS: ATTEND Family Medicine
DX: I10 Essential (primary) hypertension (principal); E78.5 Hyperlipidemia, unspecified
CPT/HCPCS: 36415; 80053; 80061; 85025

== ENCOUNTER → 2021-05-06 | Outpatient (CLI) | payer OTHER ==
--- NOTE | 2021-05-08 12:35 | MM ---
Reason for exam: screening (asymptomatic). Last mammogram was performed 7 months ago. History: Patient is nulliparous. Family history of breast cancer in maternal grandmother at age 45. Took hormonal contraceptives for 11 years beginning at age 18. Physical Findings: A clinical breast exam by your physician is recommended on an annual basis and results should be correlated with mammographic findings. MG 3D Screening Mammo W/Cad Bilateral CC and MLO view(s) were taken. Prior study comparison: October 03, 2020, right breast MG 3d diag mammo w/cad RT. April 03, 2020, bilateral MG 3d diag mammo w/cad [facility]. There are scattered fibroglandular densities. Slightly increased breast density diffusely suggests some gradual weight loss. No significant changes when compared with prior studies. ASSESSMENT: Benign, BI-RAD 2 RECOMMENDATION: Routine screening mammogram of both breasts in 1 year. Patient should continue monthly self breast exams. A negative report should not preclude additional follow up of suspicious palpable abnormalities.
== END | disposition home or self-care (01) ==
LOC: RADMAMWWP 15:28
PROVIDERS: ATTEND Obstetrics & Gynecology
DX: Z12.31 Encounter for screening mammogram for malignant neoplasm of breast (principal); Z80.3 Family history of malignant neoplasm of breast
CPT/HCPCS: 77063; 77067

== ENCOUNTER → 2022-02-02 | Outpatient (CLI) | payer OTHER ==
[2022-02-02 11:19] LABS: Basophils # (A) 0.05 X 10*3/uL (0.00-0.10); Basophils % (A) 0.8 %; Eosinophils # (A) 0.09 X 10*3/uL (0.04-0.35); Eosinophils % (A) 1.4 %; HCT 45.1 % (37.2-46.3); HGB 14.5 g/dL (12.0-15.0); Immature Grans, Automated 0.2 %; Lymphocytes # (A) 2.12 X 10*3/uL (0.90-5.00); Lymphocytes % (A) 32.9 %; MCH 27.9 pg (27.0-32.0); MCHC 32.2 g/dL (32.0-37.0); MCV 86.7 fL (80.0-97.0); Mean Platelet Volume 9.7 fL (9.5-12.2); Monocytes % (A) 6.2 %; NRBC Per 100 WBC 0 /100 WBCS (0.0-0.0); Neutrophils # (A) 3.78 X 10*3/uL (1.80-7.70); Neutrophils % (A) 58.5 %; Platelet Count 281 X 10*3/uL (140-440); RDW 13.2 % (11.5-14.5); WBC 6.45 X 10*3/uL (4.50-10.00)
[2022-02-02 11:48] LABS: ALT 12 U/L (8-44); AST 12 U/L (13-35); African American GFR (CKD) 103.6 (60.0-200.0); Albumin 4.5 g/dL (3.8-4.9); Albumin/Globulin Ratio 1.87 (1.60-3.17); Alkaline Phosphatase 54 U/L (41-126); BUN/Creat Ratio 19.73 Ratio (12.00-20.00); Blood Urea Nitrogen 16.1 mg/dL (9.0-27.0); Calcium 9.6 mg/dL (8.7-10.3); Carbon Dioxide 23.3 mmol/L (20.0-27.5); Chloride 107 mmol/L (96-109); Chol/HDL Ratio 5.74 Ratio; Globulin 2.4 g/dL (1.6-3.3); Glucose 90 mg/dL (70-110); LDL Cholesterol,Calculated 182.3 mg/dL (0.0-131.0); Magnesium 2.1 mg/dL (1.5-2.4); Non-African American GFR(CKD) 89.4 (60.0-200.0); Potassium 4.5 mmol/L (3.5-5.5); Sodium 141 mmol/L (135-145)
== END | disposition home or self-care (01) ==
LOC: LABWHC1 07:14
PROVIDERS: ATTEND Family Medicine
DX: R53.83 Other fatigue (principal); E78.5 Hyperlipidemia, unspecified
CPT/HCPCS: 36415; 80053; 80061; 83735; 84443; 85025

== ENCOUNTER → 2022-02-17 | Outpatient (CLI) | payer OTHER ==
--- NOTE | 2022-02-17 17:19 | US ---
EXAMINATION TYPE: US thyroid st tissue head/neck DATE OF EXAM: 02/17/2022 COMPARISON: NONE CLINICAL HISTORY: R22.1 LOCALIZED SWELLING, MASS AND LUMP, NECK. edema GLAND SIZE: Right Lobe: 5.8 x 2.3 x 3.0 cm Overall Parenchyma: homogenous Left Lobe: 6.0 x 2.3 x 3.2 cm Overall Parenchyma: homogeneous Isthmus Thickness: 0.3 cm NODULES RIGHT: # of nodules measured on right: 1 1. 2.9 X 2.2 x 2.6 cm, TIRADS Score: 4 TIRADS Category 4: Moderately Suspicious Composition: Solid or almost completely solid (2 points). Echogenicity: Hypoechoic (2 points). Shape: Wider than tall (0 points). Margin: Smooth (0 points). Echogenic foci: None or large comet-tail artifacts (0 points) Recommendation: If >1.5cm: FNA; If >1cm: Follow up at 1,3,5 years LEFT: # of nodules measured on left: 1 1. 3.0 X 1.9 x 2.4 cm, TIRADS Score: 4 TIRADS Category 4: Moderately Suspicious Composition: Solid or almost completely solid (2 points). Echogenicity: Hypoechoic (2 points). Shape: Wider than tall (0 points). Margin: Smooth (0 points). Echogenic foci: None or large comet-tail artifacts (0 points) Recommendation: If >1.5cm: FNA; If >1cm: Follow up at 1,3,5 years ISTHMUS: # of nodules measured in the isthmus: 0 Bilateral neck scanned, no evidence of lymphadenopathy. IMPRESSION: Bilateral thyroid nodules as described above.
== END | disposition home or self-care (01) ==
LOC: RADUSWWP 16:30
PROVIDERS: ATTEND Family Medicine
DX: E04.2 Nontoxic multinodular goiter (principal)
CPT/HCPCS: 76536

== ENCOUNTER → 2022-04-12 | Outpatient (CLI) | payer OTHER ==
--- NOTE | 2022-04-12 08:56 | US ---
EXAMINATION TYPE: US abdomen complete DATE OF EXAM: 04/12/2022 COMPARISON: CT 2017 CLINICAL HISTORY: R10.9 ABD PAIN. Pt states generalized on/off ABD pain TECHNIQUE: Multiple sonographic images of the abdomen are obtained. FINDINGS: EXAM MEASUREMENTS: Liver Length: 16.5 cm Gallbladder Wall: 0.2 cm CBD: 0.6 cm Spleen: 11.1 cm Right Kidney: 12.1 x 4.8 x 5.2 cm Left Kidney: 14.3 x 5.3 x 5.2 cm TIRE MOLDER NOTES: Pancreas: Obscured by bowel gas Liver: Hyperechoic lesion left anterior lobe= 2.2 x 1.4 x 2.98 cm, heterogeneous Gallbladder: fold at fundus, two probable polyps within lumen Evidence for sonographic Lezama's sign: No CBD: wnl Spleen: wnl Right Kidney: No evidence of hydro, two possible calculi at upper pole, 4mm and 3mm in size Left Kidney: Large in size, mild hydro Upper IVC: wnl Abd Aorta: wnl Visualized liver is heterogeneously hyperechoic. Evaluation for focal masses suboptimal due to the he terogeneity. Technologist gregorio a 2.2 cm peripheral hyperechoic lesion in the left hepatic lobe could reflect more focal prominent fat, underlying solid mass not excluded. No corresponding abnormality c learly seen on 2017 CT. The intrahepatic portion of the IVC and visualized abdominal aorta are within normal limits. There is no evidence of shadowing mobile cholelithiasis. Common bile duct is unrema rkable. The pancreas is suboptimally evaluated due to shadowing from overlying bowel gas per technol ogist. The spleen is unremarkable. Slight asymmetric enlargement of left kidney with mild to moderat e left-sided hydronephrosis. Right kidney shows no hydronephrosis with small hyperechoic foci could r eflect nonobstructing calculi . IMPRESSION: 1. New mild to moderate left-sided hydronephrosis. Further workup and follow-up advised. 2. Fatty infiltrative hepatocellular disease redemonstrated. Cannot exclude new 3.0 cm peripheral janie id mass left hepatic lobe. Advise liver protocol contrast-enhanced MRI to further evaluate.
[2022-04-12 10:43] LABS: HCT 43.5 % (37.2-46.3); HGB 14.2 g/dL (12.0-15.0); MCH 28.2 pg (27.0-32.0); MCHC 32.6 g/dL (32.0-37.0); MCV 86.3 fL (80.0-97.0); Mean Platelet Volume 9.7 fL (9.5-12.2); NRBC Per 100 WBC 0 /100 WBCS (0.0-0.0); Platelet Count 258 X 10*3/uL (140-440); RBC 5.04 X 10*6/uL (4.10-5.20); RDW 13.1 % (11.5-14.5); WBC 8.13 X 10*3/uL (4.50-10.00)
[2022-04-12 10:49] LABS: African American GFR (CKD) 92.4 (60.0-200.0); Albumin 4.5 g/dL (3.8-4.9); Albumin/Globulin Ratio 1.59 (1.60-3.17); Anion Gap 12.3 mmol/L (10.00-18.00); BUN/Creat Ratio 16.5 Ratio (12.00-20.00); Blood Urea Nitrogen 14.8 mg/dL (9.0-27.0); Calcium 9.4 mg/dL (8.7-10.3); Globulin 2.9 g/dL (1.6-3.3); Non-African American GFR(CKD) 79.7 (60.0-200.0); Potassium 3.8 mmol/L (3.5-5.5); Total Bilirubin 0.4 mg/dL (0.30-1.20); Total Protein 7.4 g/dL (6.2-8.2)
== END | disposition home or self-care (01) ==
LOC: RADUSWWP 06:58
PROVIDERS: ATTEND Family Medicine
DX: N13.30 Unspecified hydronephrosis (principal); K76.0 Fatty (change of) liver, not elsewhere classified; R11.2 Nausea with vomiting, unspecified; R10.84 Generalized abdominal pain; R10.12 Left upper quadrant pain
CPT/HCPCS: 76700; 80053; 82150; 83690; 85027

== ENCOUNTER → 2022-04-15 | Outpatient (CLI) | payer OTHER ==
[2022-04-15 15:50] LABS: T4, Free (Free Thyroxine) 1.01 ng/dL (0.800-1.800)
== END | disposition home or self-care (01) ==
LOC: LABWHC1 10:32
PROVIDERS: ATTEND Internal Medicine Endocrinology, Diabetes & Metabolism
DX: E04.2 Nontoxic multinodular goiter (principal)
CPT/HCPCS: 36415; 84439; 84443

== ENCOUNTER → 2022-07-08 | Outpatient (CLI) | payer OTHER ==
--- NOTE | 2022-07-08 23:20 | CT ---
EXAMINATION TYPE: CT abdomen pelvis wo con DATE OF EXAM: 07/08/2022 HISTORY: f/u kidney stones. Right kidney calculus. Left ureter calculus. CT DLP: 830.80 mGycm. Automated Exposure Control for Dose Reduction was Utilized. TECHNIQUE: CT scan of the abdomen and pelvis is performed without oral or IV contrast. COMPARISON: Prior CT abdomen and pelvis March 03, 2017. Ultrasound abdomen April 12, 2022. MRI l iver May 10, 2022 FINDINGS: Within the limitations of a non-contrast study, the following observations are made. LUNG BASES: Mild anterior bibasilar linear scarring and/or atelectasis. LIVER/GB: Somewhat contracted gallbladder incidentally noted. PANCREAS: No significant abnormality is seen. SPLEEN: No significant abnormality is seen. ADRENALS: No significant abnormality is seen. KIDNEYS: There is 4 mm calculus in distal left ureter on axial image 137, this is causing mild asymme tric left-sided hydronephrosis. No additional renal calculi bilaterally or right-sided hydronephrosis is seen. No intraluminal calculus in bladder is noted. BOWEL: No suspicious bowel dilatation is noted. GENITAL ORGANS: Anteverted uterus is present. Both ovaries are identified and felt normal in size. LYMPH NODES: No greater than 1cm abdominal or pelvic lymph nodes are appreciated. OSSEOUS STRUCTURES: There is right-sided pars defect L5 level. There is no left-sided pars defect. Mo derate to severe disc space narrowing with vacuum disc phenomenon and endplate sclerosis L5-S1 level is now present. OTHER: No significant additional abnormality is seen. IMPRESSION: There is 4 mm calculus in distal left ureter causing mild left sided hydronephrosis.
== END | disposition home or self-care (01) ==
LOC: RADCTMAIN 17:16
PROVIDERS: ATTEND Urology
DX: N13.2 Hydronephrosis with renal and ureteral calculous obstruction (principal)
CPT/HCPCS: 74176

== ENCOUNTER → 2022-07-16 | Outpatient (CLI) | payer OTHER ==
--- NOTE | 2022-07-19 07:30 | MM ---
Reason for Exam: Screening (asymptomatic). Last mammogram was performed 1 year(s) and 2 month(s) ago. Patient History: Menarche at age 13. Patient has no children. Hormonal Contraceptives for 11 years from age 18 until age 29. Maternal grandmother had breast cancer, age 45. Last menstrual period: 07/16/2022 Risk Values: Tri 5 year model risk: 0.7%. NCI Lifetime model risk: 11.0%. Prior Study Comparison: 04/03/2020 Bilateral Diagnostic Mammogram, [facility]. 10/03/2020 Right Diagnostic Mammogram, [facility]. 05/06/2021 Bilateral Screening Mammogram, [facility]. Tissue Density: The breast tissue is heterogeneously dense. This may lower the sensitivity of mammography. Findings: Analyzed By CAD. There is no suspicious group of microcalcifications or new suspicious mass in either breast. Overall Assessment: Negative, BI-RAD 1 Management: Screening Mammogram of both breasts in 1 year. . Patient should continue monthly self-breast exams. A clinical breast exam by your physician is recommended on an annual basis. This exam should not preclude additional follow-up of suspicious palpable abnormalities. Note on Tri scores and lifetime risk: 1. A Tri score greater than 3% is considered moderate risk. If this is the case, consider specialist referral to assess eligibility for a risk reducing agent. 2. If overall lifetime risk for the development of breast cancer is 20% or higher, the patient may qualify for future screening with alternating mammogram and breast MRI. Electronically signed and approved by: Gurmeet Fu M.D.
== END | disposition home or self-care (01) ==
LOC: RADMAMWWP 07:18
PROVIDERS: ATTEND Obstetrics & Gynecology
DX: Z12.31 Encounter for screening mammogram for malignant neoplasm of breast (principal); Z80.3 Family history of malignant neoplasm of breast
CPT/HCPCS: 77063; 77067

== ENCOUNTER → 2022-07-28 | Outpatient (CLI) | payer OTHER ==
--- NOTE | 2022-07-29 11:36 | XR ---
EXAMINATION TYPE: XR KUB DATE OF EXAM: 07/28/2022 Comparison: None Clinical History: 41-year-old female N20.1 Findings: There is a 6 - 7 mm calcification in the left-sided pelvis. No other suspicious calcifications seen. Nonobstructive bowel gas pattern. Minimal stool in the right side of the abdomen. Impression: Possible 6 to 7 mm left UVJ stone.
== END | disposition home or self-care (01) ==
LOC: RADXRMAIN 17:44
PROVIDERS: ATTEND Urology
DX: N20.1 Calculus of ureter (principal)
CPT/HCPCS: 74018

== ENCOUNTER → 2022-08-04 | Outpatient (CLI) | payer OTHER ==
[2022-08-04 11:01] LABS: HCT 44.5 % (37.2-46.3); HGB 14.1 g/dL (12.0-15.0); MCH 27.4 pg (27.0-32.0); MCHC 31.7 g/dL (32.0-37.0); MCV 86.4 fL (80.0-97.0); Mean Platelet Volume 9.8 fL (9.5-12.2); NRBC Per 100 WBC 0 /100 WBCS (0.0-0.0); Platelet Count 288 X 10*3/uL (140-440); RBC 5.15 X 10*6/uL (4.10-5.20); RDW 13.5 % (11.5-14.5); WBC 7.65 X 10*3/uL (4.50-10.00)
[2022-08-04 11:12] LABS: Appearance,Urine Cloudy (Clear); Bilirubin,Urine Negative (Negative); Blood,Urine Negative (Negative); Color,Urine Yellow (Yellow); Ketones,Urine Negative (Negative); Nitrite,Urine Negative (Negative); Specific Gravity,Urine 1.023 (1.001-1.030); Urobilinogen,Urine 0.2 (0.2,1.0)
[2022-08-04 11:33] LABS: African American GFR (CKD) 106.1 (60.0-200.0); Anion Gap 11.4 mmol/L (10.00-18.00); Blood Urea Nitrogen 14.4 mg/dL (9.0-27.0); Calcium 9.5 mg/dL (8.7-10.3); Carbon Dioxide 23.6 mmol/L (20.0-27.5); Non-African American GFR(CKD) 91.6 (60.0-200.0); Potassium 4.5 mmol/L (3.5-5.5)
[2022-08-04 11:35] LABS: Bacteria,Urine None Seen /HPF (None Seen); Calcium Oxalate Crystals,Urine Present /LPF (None Seen)
== END | disposition home or self-care (01) ==
LOC: LABPAT 07:40
PROVIDERS: ATTEND Urology
DX: Z01.812 Encounter for preprocedural laboratory examination (principal); N20.1 Calculus of ureter; R31.29 Other microscopic hematuria
CPT/HCPCS: 36415; 80048; 81001; 85027; 87086

== ENCOUNTER → 2022-08-11 | Day surgery (SDC) | payer OTHER ==
[2022-08-06 10:37] VITALS: BMI 32.8
--- NOTE | 2022-08-10 19:32 | P.GSHP ---
History of Present Illness H&P Date: 08/10/22 41 yo female with a 7 mm distal ureteral stone that she has tried for over three weeks. the stone has not passed and she would like it removed. She comes for left ureteroscopy with laser lithotripsy. the alternatives have been discussed. - Constitutional Constitutional: Denies chills, Denies fever - EENT Eyes: denies blurred vision, denies pain Ears, nose, mouth and throat: Denies headache, Denies sore throat - Cardiovascular Cardiovascular: Denies chest pain, Denies shortness of breath - Respiratory Respiratory: Denies cough, Denies 7 - Gastrointestinal Gastrointestinal: Denies abdominal pain, Denies diarrhea, Denies nausea, Denies vomiting - Genitourinary (Female) Genitourinary: Denies dysuria, Denies hematuria - Genitourinary (Male) Genitourinary: Denies dysuria, Denies hematuria - Musculoskeletal Musculoskeletal: Denies myalgias - Integumentary Integumentary: Denies pruritus, Denies rash - Neurological Neurological: Denies numbness, Denies weakness - Psychiatric Psychiatric: Denies anxiety, Denies depression - Endocrine Endocrine: Denies fatigue, Denies weight change Past Medical History Past Medical History: Hyperlipidemia, Hypertension, Thyroid Disorder Additional Past Medical History / Comment(s): Pseudo cerebri tumor, migraines. Benign thyroid nodules. History of Any Multi-Drug Resistant Organisms: None Reported Past Surgical History: No Surgical Hx Reported Past Anesthesia/Blood Transfusion Reactions: Motion Sickness Additional Past Anesthesia/Blood Transfusion Reaction / Comment(s): Has never had anesthesia. Past Psychological History: Anxiety Smoking Status: Never smoker Past Alcohol Use History: Rare Additional Past Alcohol Use History / Comment(s): Quit smoking 9 yrs ago, smoked on and off. Past Drug Use History: None Reported - Past Family History Mother Family Medical History: No Reported History Father History Unknown: Yes Family Medical History: CVA/TIA Additional Family Medical History / Comment(s): Major CVA X2, states doesn't know much about Dad's hx they are estranged. Medications and Allergies Home Medications Medication Instructions Recorded Confirmed Type Cyanocobalamin (Vitamin B-12) 1,000 mcg PO DAILY 11/22/20 08/06/22 History [Vitamin B-12] [place]-3 Fatty Acids/Fish Oil [Fish 1,000 mg PO DAILY 11/22/20 08/06/22 History Oil 1,000 mg Softgel] acetaZOLAMIDE [Diamox] 250 mg PO HS PRN 11/22/20 08/06/22 History acetaZOLAMIDE [Diamox] 250 mg PO QAM 11/22/20 08/06/22 History busPIRone HCL [Buspar] 7.5 mg PO BID 11/22/20 08/06/22 History Cholecalciferol (Vitamin D3) 125 mcg PO DAILY 08/06/22 08/06/22 History [Vitamin D3 (125 MCG = 5,000 IU)] Allergies Allergy/AdvReac Type Severity Reaction Status Date / Time No Known Allergies Allergy Verified 08/06/22 10:23 Surgical - Exam - General well developed, well nourished, no distress - Eyes normal ocular movement, no icteric - ENT no hearing loss, no congestion - Neck no masses, trachea midline - Respiratory normal respiratory effort, clear to auscultation - Abdomen Abdomen: soft, non tender, no guarding, no rigid, no rebound - Integumentary no rash, no abnormal pigmentation - Neurologic no disoriented, no combative - Psychiatric oriented to time, oriented to person, oriented to place, speech is normal, memory intact Results - Imaging Abdominal x-ray: report reviewed, image reviewed CT scan - abdomen: report reviewed, image reviewed CT scan - pelvis: report reviewed, image reviewed Assessment and Plan Assessment: Impression: Left ureteral stone with obstruction Plan: left ureteroscopy with laser lithotripsy
[~2022-08-11] MED LIST changes: +DEXAMETHASONE SOD PHOSPHATE 4 MG/ML 1 ML VIAL IV ONE; +HYDROmorphone 0.5 MG/0.5 ML SYRINGE IVP PRN; +LACTATED RINGERS 1,000 ML IV SCH; +LIDOCAINE 1% (10MG/ML) FOR IV START INTRADERMA ONE; +ONDANSETRON 4 MG/2 ML VIAL IVP ONE; -SODIUM CHLORIDE 0.9% 250 ML in EMPTY BAG 1 BAG IV PRN; -SODIUM CHLORIDE 0.9% 500 ML in EMPTY BAG 1 BAG IV PRN
--- NOTE | 2022-08-11 08:15 | XR ---
EXAMINATION TYPE: XR KUB DATE OF EXAM: 08/11/2022 7:52 AM INDICATION: Patient age:Female; 41 years old; Reason for study: N20.1 left ureteral stone; COMPARISON: 07/08/2022. TECHNIQUE: One radiographic view of the abdomen was obtained. FINDINGS: The bowel gas pattern is nonspecific without dilated loops of small or large bowel. There i s no evidence for organomegaly or pneumoperitoneum. The osseous structures are intact. Left uretera l stone is no longer visualized and may have passed. No abnormal calcifications are present. Fecal ma terial and gas are demonstrated throughout the colon and rectum. IMPRESSION: 1. Left ureteral stone is no longer visualized. Comment no renal calculi visualized. 2. Nonspecific bowel gas pattern without radiographic evidence for acute process.
[2022-08-11 08:30] VITALS: BP 140/89; PULSE 85; RESP 16; TEMP 98.4
--- NOTE | 2022-08-11 09:14 | P.DS ---
Providers Attending physician: Paul Bear Primary care physician: [facility] Course: The patient came to the hospital today for a left ureteroscopy and laser lithotripsy. She passed her stone in the last several days as her pain is gone in the KUB shows a calcification. The procedure is canceled; she'll follow-up in the office. Patient Condition at Discharge: Good Plan - Discharge Summary Discharge Rx Participant: No New Discharge Prescriptions: No Action acetaZOLAMIDE [Diamox] 250 mg PO QAM Cholecalciferol (Vitamin D3) [Vitamin D3 (125 MCG = 5,000 IU)] 125 mcg PO DAILY acetaZOLAMIDE [Diamox] 250 mg PO HS PRN PRN Reason: Edema Cyanocobalamin (Vitamin B-12) [Vitamin B-12] 1,000 mcg PO DAILY busPIRone HCL [Buspar] 7.5 mg PO BID [place]-3 Fatty Acids/Fish Oil [Fish Oil 1,000 mg Softgel] 1,000 mg PO DAILY Discharge Medication List Cyanocobalamin (Vitamin B-12) [Vitamin B-12] 1,000 mcg PO DAILY 11/22/20 [History] [place]-3 Fatty Acids/Fish Oil [Fish Oil 1,000 mg Softgel] 1,000 mg PO DAILY 11/22/20 [History] acetaZOLAMIDE [Diamox] 250 mg PO HS PRN 11/22/20 [History] acetaZOLAMIDE [Diamox] 250 mg PO QAM 11/22/20 [History] busPIRone HCL [Buspar] 7.5 mg PO BID 11/22/20 [History] Cholecalciferol (Vitamin D3) [Vitamin D3 (125 MCG = 5,000 IU)] 125 mcg PO DAILY 08/06/22 [History]
== END ==
LOC: OR 07:41
PROVIDERS: ATTEND Urology
DX: Z53.8 Procedure and treatment not carried out for other reasons (principal); N20.1 Calculus of ureter
CPT/HCPCS: 74018; J1100; J2405

== ENCOUNTER → 2022-08-23 | Outpatient (CLI) | payer OTHER ==
[2022-08-23 11:15] LABS: Basophils # (A) 0.05 X 10*3/uL; Basophils % (A) 0.7 %; Eosinophils # (A) 0.09 X 10*3/uL; Eosinophils % (A) 1.2 %; HCT 42.5 %; HGB 13.6 d/dL; Lymphocytes # (A) 2.74 X 10*3/uL; Lymphocytes % (A) 37.8 %; MCH 27.9 pg; MCV 87.1 FL; Mean Platelet Volume 9.7 FL; Monocytes # (A) 0.43 X 10*3/uL; Monocytes % (A) 5.9 %; NRBC Per 100 WBC 0 X 10*3/uL; Neutrophils # (A) 3.91 X 10*3/uL; Neutrophils % (A) 54.1 %; Platelet Count 278 X 10*3/uL; RBC 4.88 X 10*6/uL; RDW 13.6 %; WBC 7.24 X 10*3/uL
[2022-08-23 11:36] LABS: Chol/HDL Ratio 4.58 Ratio; LDL Cholesterol,Calculated 159.6 mg/dL
[2022-08-23 12:49] LABS: ALT 16 U/L; AST 15 U/L; Albumin 4.4 d/dL; Albumin/Globulin Ratio 1.63 Ratio; Alkaline Phosphatase 47 U/L; Blood Urea Nitrogen 16.4 mg/dL; Calcium 9.4 mg/dL; Chloride 109 mmol/L; Globulin 2.7 d/dL; Glucose 100 mg/dL; Potassium 4.1 mmol/L; Sodium 142 mmol/L; Total Bilirubin 0.3 mg/dL; Total Protein 7.1 d/dL
== END | disposition home or self-care (01) ==
LOC: LABWHC1 07:17
PROVIDERS: ATTEND Family Medicine
DX: Z00.00 Encounter for general adult medical examination without abnormal findings (principal); E55.9 Vitamin D deficiency, unspecified
CPT/HCPCS: 36415; 80053; 80061; 82306; 85025

== ENCOUNTER → 2023-02-21 | Outpatient (CLI) | payer OTHER ==
[2023-02-21 11:01] LABS: BUN/Creat Ratio 15.22 Ratio (12.00-20.00); Blood Urea Nitrogen 13.7 mg/dL (9.0-27.0); Chloride 107 mmol/L (96-109); Glucose 99 mg/dL (70-110); Potassium 4.1 mmol/L (3.5-5.5); Sodium 143 mmol/L (135-145)
[2023-02-21 11:02] LABS: ALT 20 U/L (8-44); AST 25 U/L (13-35); Albumin 4.3 g/dL (3.8-4.9); Albumin/Globulin Ratio 1.72 Ratio (1.60-3.17); Alkaline Phosphatase 54 U/L (41-126); Calcium 9.7 mg/dL (8.7-10.3); Carbon Dioxide 23.6 mmol/L (21.6-31.8); Globulin 2.5 g/dL (1.6-3.3); Total Bilirubin 0.2 mg/dL (0.3-1.2); Total Protein 6.8 g/dL (6.2-8.2)
== END | disposition home or self-care (01) ==
LOC: LABWHC1 07:09
PROVIDERS: ATTEND Family Medicine
DX: Z00.00 Encounter for general adult medical examination without abnormal findings (principal)
CPT/HCPCS: 36415; 80053

== ENCOUNTER → 2023-05-26 | Outpatient (CLI) | payer OTHER ==
--- NOTE | 2023-05-26 08:07 | US ---
EXAMINATION TYPE: US thyroid st tissue head/neck DATE OF EXAM: 05/26/2023 COMPARISON: NONE CLINICAL INDICATION: Female, 42 years old with history of E04.2 NONTOXIC MULTINODULAR GOITER; thyroid nodules GLAND SIZE: Right Lobe: 5.8 x 2.2 x 3.2 cm Overall Parenchyma: heterogenous Left Lobe: 5.9 x 2.4 x 2.8 cm Overall Parenchyma: heterogenous Isthmus Thickness: 0.3 cm NODULES RIGHT: # of nodules measured on right: 1 1. 2.6 X 1.6 x 2.4 cm, mid, solid or almost completely solid, hypoechoic nodule, which is wider bassam n tall, with ill-defined margins, without echogenic foci. Prior size: 3.7 x 2.1 x 2.2 cm. Moderately Suspicious: FNA if ? 1.5 cm; Follow if ? 1 cm at 1, 2 , 3, and 5 y LEFT: # of nodules measured on left: 1 1. 2.7 X 2.0 x 2.5 cm, mid , mixed cystic and solid, hypoechoic nodule, which is wider than tall, w ith ill-defined margins, without echogenic foci. Prior size: 3.5 x 2.0 x 2.5 cm. Mildly Suspicious: FNA if ? 2.5 cm; Follow if ? 1.5 cm at 1, 3, and 5 y ISTHMUS: # of nodules measured in the isthmus: 0 Bilateral neck scanned, no evidence of lymphadenopathy. IMPRESSION: Biopsy recommended for right sided thyroid nodule labeled 1. If this has not been performed in the past. 2017 ACR TI-RADS LEVEL: TR4 *Highest TI-RADS level nodule reported
[2023-05-26 11:16] LABS: T4, Free (Free Thyroxine) 1.16 ng/dL (0.80-1.80)
== END | disposition home or self-care (01) ==
LOC: RADUSWWP 06:59
PROVIDERS: ATTEND Internal Medicine Endocrinology, Diabetes & Metabolism
DX: E04.2 Nontoxic multinodular goiter (principal)
CPT/HCPCS: 36415; 76536; 84439; 84443

== ENCOUNTER → 2023-07-06 | Outpatient (CLI) | payer OTHER ==
[2023-07-06 11:35] LABS: ALT 23 U/L (8-44); AST 20 U/L (13-35); Albumin 4.6 g/dL (3.8-4.9); Alkaline Phosphatase 53 U/L (41-126); Bilirubin, Conjugated <0.20 mg/dL (0.20-0.40); Bilirubin,Unconjugated >0.10 mg/dL (0.20-1.00); Globulin 2.7 g/dL (1.6-3.3); Total Bilirubin 0.3 mg/dL (0.3-1.2); Total Protein 7.3 g/dL (6.2-8.2)
--- NOTE | 2023-07-06 22:05 | US ---
EXAMINATION TYPE: US liver DATE OF EXAM: 07/06/2023 COMPARISON: 12/20/22 CLINICAL INDICATION: Female, 42 years old with history of K76.9 LIVER DISEASE, UNSPECIFIED; TECHNIQUE: Multiple sonographic images of the right upper quadrant are obtained. 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 2 x 2.5 x 2.0 cm is a slightly ill-defined. Hemangioma however is likely within the differential. Co nsider CT with hemangioma protocol. This is slightly smaller than the comparison study. Previous garrett urement 4.0 x 1.7 x 2.7 cm. Gallbladder: Possible polyps noted. No shadowing calculi identified. Evidence for sonographic Lezama's sign: No CBD: wnl Right Kidney: Possible double collecting system IMPRESSION: 1. Minimal size of the Suspected hemangioma within the liver. CT or MRI could be performed if confirm ation would be of benefit. 2. Gallbladder polyps. 3. 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
== END | disposition home or self-care (01) ==
LOC: RADUSWWP 07:08
PROVIDERS: ATTEND Internal Medicine Gastroenterology
DX: K76.9 Liver disease, unspecified (principal); K82.4 Cholesterolosis of gallbladder
CPT/HCPCS: 76705; 80076; 81596

== ENCOUNTER → 2023-07-18 | Outpatient (CLI) | payer OTHER ==
--- NOTE | 2023-07-19 09:00 | MM ---
Reason for Exam: Screening (asymptomatic). Last screening mammogram was performed 12 month(s) ago. Patient History: Menarche at age 13. Patient has no children. Premenopausal. Hormonal Contraceptives for 11 years from age 18 until age 29. Maternal grandmother had breast cancer, age 55. Risk Values: Tri 5 year model risk: 0.7%. NCI Lifetime model risk: 10.9%. Prior Study Comparison: 03/02/2018 Bilateral Screening Mammogram, [facility]. 03/02/2018 Left Diagnostic Mammogram, [facility]. 10/16/2018 Left Diagnostic Mammogram, [facility]. 04/03/2020 Bilateral Diagnostic Mammogram, [facility]. 10/03/2020 Right Diagnostic Mammogram, [facility]. 05/06/2021 Bilateral Screening Mammogram, [facility]. 07/16/2022 Bilateral MG 3D screening mammo w/cad, [facility]. Tissue Density: The breasts are heterogeneously dense, which may obscure small masses. Findings: Analyzed By CAD. There is no suspicious group of microcalcifications or new suspicious mass in either breast. Benign-appearing calcifications. Stable asymmetric density in the central aspect of the right breast relative to multiple prior exams. Overall Assessment: Benign, BI-RAD 2 Management: Screening Mammogram of both breasts in 1 year. . Patient should continue monthly self-breast exams. A clinical breast exam by your physician is recommended on an annual basis. This exam should not preclude additional follow-up of suspicious palpable abnormalities. Note on Tri scores and lifetime risk: 1. A Tri score greater than 3% is considered moderate risk. If this is the case, consider specialist referral to assess eligibility for a risk reducing agent. 2. If overall lifetime risk for the development of breast cancer is 20% or higher, the patient may qualify for future screening with alternating mammogram and breast MRI. Electronically signed and approved by: Mauricio Thompson M.D. Radiologis
== END | disposition home or self-care (01) ==
LOC: RADMAMWWP 07:16
PROVIDERS: ATTEND Family Medicine
DX: Z12.31 Encounter for screening mammogram for malignant neoplasm of breast (principal); Z80.3 Family history of malignant neoplasm of breast
CPT/HCPCS: 77063; 77067

== ENCOUNTER → 2023-08-13 | Outpatient (CLI) | payer OTHER ==
[2023-08-13 13:28] LABS: Basophils # (A) 0.05 X 10*3/uL (0.00-0.10); Basophils % (A) 0.8 %; Eosinophils # (A) 0.08 X 10*3/uL (0.04-0.35); Eosinophils % (A) 1.2 %; HCT 46.9 % (37.2-46.3); HGB 14.8 g/dL (12.0-15.0); Lymphocytes # (A) 2.35 X 10*3/uL (0.90-5.00); Lymphocytes % (A) 36.2 %; MCH 28.1 pg (27.0-32.0); MCHC 31.6 g/dL (32.0-37.0); MCV 89.2 FL (80.0-97.0); Mean Platelet Volume 10.3 FL (9.5-12.2); Monocytes # (A) 0.34 X 10*3/uL (0.20-1.00); Monocytes % (A) 5.2 %; NRBC Per 100 WBC 0 X 10*3/uL (0.00-0.01); Neutrophils # (A) 3.67 X 10*3/uL (1.80-7.70); Neutrophils % (A) 56.4 %; Platelet Count 275 X 10*3/uL (140-440); RBC 5.26 X 10*6/uL (4.10-5.20); RDW 13.2 % (11.5-14.5)
[2023-08-13 13:52] LABS: ALT 17 U/L (8-44); AST 15 U/L (13-35); Albumin 4.5 g/dL (3.8-4.9); Alkaline Phosphatase 56 U/L (41-126); BUN/Creat Ratio 19.12 Ratio (12.00-20.00); Blood Urea Nitrogen 15.3 mg/dL (9.0-27.0); Calcium 9.5 mg/dL (8.7-10.3); Carbon Dioxide 23.9 mmol/L (21.6-31.8); Chloride 107 mmol/L (96-109); Chol/HDL Ratio 5.19 Ratio; Globulin 2.5 g/dL (1.6-3.3); Glucose 97 mg/dL (70-110); Potassium 4.4 mmol/L (3.5-5.5); Sodium 141 mmol/L (135-145); Total Bilirubin 0.5 mg/dL (0.3-1.2)
== END | disposition home or self-care (01) ==
LOC: LABWHC1 08:16
PROVIDERS: ATTEND Family Medicine
DX: Z00.00 Encounter for general adult medical examination without abnormal findings (principal)
CPT/HCPCS: 36415; 80053; 80061; 82306; 84443; 85025

== ENCOUNTER → 2023-11-28 | Outpatient (CLI) | payer OTHER ==
--- NOTE | 2023-11-28 09:42 | US ---
EXAMINATION TYPE: US thyroid st tissue head/neck DATE OF EXAM: 11/28/2023 COMPARISON: Thyroid ultrasound 05/26/2023, 11/26/2022, 02/17/2022 CLINICAL INDICATION: Female, 43 years old with history of E04.2 GOITER; f/u exam GLAND SIZE: Right Lobe: 7.4 x 2.4 x 2.4 cm Overall Parenchyma: heterogeneous Left Lobe: 6.7 x 2.4 x 2.2 cm Overall Parenchyma: heterogeneous Isthmus Thickness: 0.5 cm NODULES RIGHT: # of nodules measured on right: 1 1. 3.2 X 2.5 x 2.2 cm, mid , mixed cystic and solid, hypoechoic nodule, which is wider than tall, w ith smooth margins, without echogenic foci. TR 3. Prior size: 2.6 x 1.6 x 2.4 cm LEFT: # of nodules measured on left: 1 1. 2.7 X 2.6 x 1.9 cm, mid , mixed cystic and solid, hypoechoic nodule, which is wider than tall, wi th smooth margins, without echogenic foci. TR 3. Prior size: 2.7 x 2.5 x 2.0 cm ISTHMUS: # of nodules measured in the isthmus: 0 Bilateral neck scanned, no evidence of lymphadenopathy. IMPRESSION: Heterogenous enlarged thyroid gland with bilateral TR 3 thyroid nodules. The left thyroid nodule is s table and measures up to 2.7 cm. The right thyroid lobe nodule has increased in size measuring up to 3.2 cm, previously 2.6 cm. Fine-needle aspiration recommended for both nodules if not performed previ ously. ACR TI-RADS LEVEL: TR-RADS 3 - Mildly Suspicious: Follow if > 1.5 cm, FNA if > 2.5 cm
[2023-11-28 15:48] LABS: T4, Free (Free Thyroxine) 1.11 ng/dL (0.80-1.80)
== END | disposition home or self-care (01) ==
LOC: RADUSWWP 07:00
PROVIDERS: ATTEND Internal Medicine Endocrinology, Diabetes & Metabolism
DX: E04.2 Nontoxic multinodular goiter (principal)
CPT/HCPCS: 76536; 84439; 84443

== ENCOUNTER → 2024-01-16 | Outpatient (CLI) | payer OTHER ==
--- NOTE | 2024-01-16 08:32 | US ---
EXAMINATION TYPE: US liver DATE OF EXAM: 01/16/2024 COMPARISON: Ossification representing hepatic hemangioma. 07/08/2022. CLINICAL INDICATION: Female, 43 years old with history of K76.9 LIVER DISEASE; F/U TECHNIQUE: Grayscale and color Doppler imaging of the right upper quadrant was performed. FINDINGS: EXAM MEASUREMENTS: Liver Length: 15.2 cm Gallbladder Wall: 2 mm CBD: 0.7 cm Right Kidney: 13.0 x 5.5 x 5.4 cm Pancreas: wnl Liver: Hyperechoic observation measuring 1.6 x 1.2 x 1.6 cm. Increased echotexture liver parenchyma . Gallbladder: Two polyps measuring up to 4mm Evidence for sonographic Lezama's sign: No CBD: 0.7 cm Right Kidney: 0.3cm echogenic area again seen from prior US 12/20/22 exam limited by habitus and bowel gas IMPRESSION: 1. Hepatic steatosis with hyperechoic observation unit also from ligament. Similar to 07/08/2022 CT w here it is faintly visible. 2. Gallbladder polyps measuring up to 4 mm stable from prior. [facility], , 01/16/2024 8:29 AM
[2024-01-16 10:19] LABS: Basophils # (A) 0.04 X 10*3/uL (0.00-0.10); Basophils % (A) 0.8 %; Eosinophils # (A) 0.09 X 10*3/uL (0.04-0.35); Eosinophils % (A) 1.7 %; HGB 13.4 g/dL (12.0-15.0); Lymphocytes # (A) 2.03 X 10*3/uL (0.90-5.00); Lymphocytes % (A) 38.4 %; MCHC 31.9 g/dL (32.0-37.0); MCV 87.7 FL (80.0-97.0); Mean Platelet Volume 9.5 FL (9.5-12.2); Monocytes # (A) 0.36 X 10*3/uL (0.20-1.00); Monocytes % (A) 6.8 %; NRBC Per 100 WBC 0 X 10*3/uL (0.00-0.01); Neutrophils # (A) 2.74 X 10*3/uL (1.80-7.70); Neutrophils % (A) 51.9 %; Platelet Count 253 X 10*3/uL (140-440); RBC 4.79 X 10*6/uL (4.10-5.20); RDW 13.2 % (11.5-14.5); WBC 5.28 X 10*3/uL (4.50-10.00)
[2024-01-16 10:31] LABS: ALT 15 U/L (8-44); AST 18 U/L (13-35); Albumin 4.2 g/dL (3.8-4.9); Albumin/Globulin Ratio 1.91 Ratio (1.60-3.17); Alkaline Phosphatase 44 U/L (41-126); Calcium 9.3 mg/dL (8.7-10.3); Carbon Dioxide 24.2 mmol/L (21.6-31.8); Chloride 108 mmol/L (96-109); Globulin 2.2 g/dL (1.6-3.3); Glucose 101 mg/dL (70-110); Potassium 4.6 mmol/L (3.5-5.5); Sodium 141 mmol/L (135-145); Total Bilirubin 0.3 mg/dL (0.3-1.2); Total Protein 6.4 g/dL (6.2-8.2)
== END | disposition home or self-care (01) ==
LOC: RADUSWWP 07:07
PROVIDERS: ATTEND Internal Medicine Gastroenterology
DX: K76.9 Liver disease, unspecified
CPT/HCPCS: 76705; 80053; 85025

== ENCOUNTER → 2024-03-26 | Outpatient (CLI) | payer OTHER ==
[2024-03-26 10:46] LABS: Chol/HDL Ratio 4.96 Ratio; LDL Cholesterol,Calculated 191.2 mg/dL (0.0-131.0)
== END | disposition home or self-care (01) ==
LOC: LABWHC1 07:02
PROVIDERS: ATTEND Family Medicine
DX: E66.9 Obesity, unspecified (principal)
CPT/HCPCS: 36415; 80061

== ENCOUNTER 2024-07-11 10:23 | Day surgery (SDC) | payer OTHER ==
[2024-07-06 13:50] VITALS: BMI 27.3
[~2024-07-11 10:23] MED LIST changes: -DEXAMETHASONE SOD PHOSPHATE 4 MG/ML 1 ML VIAL IV ONE; -HYDROmorphone 0.5 MG/0.5 ML SYRINGE IVP PRN; -LACTATED RINGERS 1,000 ML IV SCH; -LIDOCAINE 1% (10MG/ML) FOR IV START INTRADERMA ONE; +LIDOCAINE 1% (10MG/ML) FOR IV START INTRADERMA PRN; -ONDANSETRON 4 MG/2 ML VIAL IVP ONE
[2024-07-11] MEDS: IV FLUID CONTINUATION 1,000 ML IV ONE (10:47)
[2024-07-11 10:58] VITALS: TEMP 97
[2024-07-11] MEDS: LACTATED RINGERS 1,000 ML IV SCH (11:03)
[2024-07-11] MEDS ORDERED: PROPOFOL 10 MG/ML 20 ML VIAL IV ONE (11:58)
--- NOTE | 2024-07-11 12:10 | P.PCN ---
Date of Procedure: 07/11/24 Procedure(s) Performed: BRIEF HISTORY: Patient is a 43-year-old pleasant white female scheduled for an elective colonoscopy as a part of evaluation intermittent rectal bleeding for the last 1 year duration. PROCEDURE PERFORMED: Colonoscopy. PREOPERATIVE DIAGNOSIS: Rectal bleeding. IV sedation per Anesthesia. PROCEDURE: After informed consent was obtained, the patient, was brought into the endoscopy unit. IV sedation was administered by Anesthesia under continuous monitoring. Digital rectal examination was normal. Initially the Olympus CF-160 flexible video colonoscope was then inserted in the rectum, gradually advanced into the cecum without any difficulty. Careful examination was performed as the scope was gradually being withdrawn. Ileocecal valve and the appendiceal orifice were visualized and appeared normal. Prep was excellent. Mucosa of the cecum, ascending colon, transverse colon, descending colon, sigmoid colon, and rectum appeared normal. Retroflexion was performed in the rectum and small internal hemorrhoids were seen. The patient tolerated the procedure well. Small internal hemorrhoids IMPRESSION: Normal-appearing colon from rectum to cecum with no evidence of colorectal neoplasia Small internal hemorrhoids. RECOMMENDATIONS: Findings of this examination were discussed with the patient as well as her family. She was advised to be on high-fiber diet and take fiber supplements on a regular basis. Recommend repeat screening colonoscopy in 10 years.
[2024-07-11 12:15] VITALS: RESP 16
[2024-07-11 12:35] VITALS: BP 112/74; PULSE 64
== END 2024-07-11 13:03 | disposition home or self-care (01) ==
LOC: ORWHC2ENDO 10:23
PROVIDERS: ATTEND Internal Medicine Gastroenterology
DX: K64.8 Other hemorrhoids (principal); I10 Essential (primary) hypertension; G93.2 Benign intracranial hypertension; Z79.899 Other long term (current) drug therapy
CPT/HCPCS: 81025; 45378; J2704

== ENCOUNTER → 2024-07-31 | Outpatient (CLI) | payer OTHER ==
--- NOTE | 2024-07-31 08:47 | MM ---
Reason for Exam: Screening (asymptomatic). Last mammogram was performed 1 year(s) and 1 month(s) ago. Patient History: Menarche at age 13. Patient has no children. Premenopausal. Hormonal Contraceptives for 11 years from age 18 until age 29. Maternal grandmother had breast cancer, age 55. Last menstrual period: 07/21/2024 Risk Values: Tri 5 year model risk: 0.8%. NCI Lifetime model risk: 10.8%. Prior Study Comparison: 05/06/2021 Bilateral Screening Mammogram, [facility]. 07/16/2022 Bilateral MG 3D screening mammo w/cad, [facility]. 07/18/2023 Bilateral MG 3D screening mammo w/cad, [facility]. Tissue Density: The breasts are heterogeneously dense, which may obscure small masses. Findings: Analyzed By CAD. There are a few small groups of benign-appearing round calcifications posteriorly in the right breast redemonstrated. There is no suspicious group of microcalcifications or new suspicious mass in either breast. Overall Assessment: Benign, BI-RAD 2 Management: Screening Mammogram of both breasts in 1 year. . Patient should continue monthly self-breast exams. A clinical breast exam by your physician is recommended on an annual basis. This exam should not preclude additional follow-up of suspicious palpable abnormalities. Note on Tri scores and lifetime risk: 1. A Tri score greater than 3% is considered moderate risk. If this is the case, consider specialist referral to assess eligibility for a risk reducing agent. 2. If overall lifetime risk for the development of breast cancer is 20% or higher, the patient may qualify for future screening with alternating mammogram and breast MRI. [facility], , 07/31/2024 8:44 AM. Electronically signed and approved by: Gurmeet Fu M.D.
== END | disposition home or self-care (01) ==
LOC: RADMAMWWP 07:01
PROVIDERS: ATTEND Family Medicine
DX: Z12.31 Encounter for screening mammogram for malignant neoplasm of breast (principal); R92.333 Mammographic heterogeneous density, bilateral breasts; Z80.3 Family history of malignant neoplasm of breast; Z92.0 Personal history of contraception
CPT/HCPCS: 77063; 77067

== ENCOUNTER → 2024-09-06 | Outpatient (CLI) | payer OTHER ==
[2024-09-06 10:12] LABS: Basophils # (A) 0.05 X 10*3/uL (0.00-0.10); Eosinophils # (A) 0.15 X 10*3/uL (0.04-0.35); Eosinophils % (A) 2.9 %; HCT 45.2 % (37.2-46.3); HGB 14.8 g/dL (12.0-15.0); Immature Grans, Automated 0 %; Lymphocytes # (A) 2.16 X 10*3/uL (0.90-5.00); Lymphocytes % (A) 41.8 %; MCH 28.2 pg (27.0-32.0); MCHC 32.7 g/dL (32.0-37.0); MCV 86.3 FL (80.0-97.0); Mean Platelet Volume 9.8 FL (9.5-12.2); Monocytes # (A) 0.45 X 10*3/uL (0.20-1.00); Monocytes % (A) 8.7 %; NRBC Per 100 WBC 0 X 10*3/uL (0.00-0.01); Neutrophils # (A) 2.36 X 10*3/uL (1.80-7.70); Neutrophils % (A) 45.6 %; Platelet Count 250 X 10*3/uL (140-440); RBC 5.24 X 10*6/uL (4.10-5.20); RDW 13.1 % (11.5-14.5); WBC 5.17 X 10*3/uL (4.50-10.00)
[2024-09-06 10:43] LABS: ALT 18 U/L (8-44); AST 19 U/L (13-35); Albumin 4.5 g/dL (3.8-4.9); Albumin/Globulin Ratio 1.67 Ratio (1.60-3.17); Alkaline Phosphatase 49 U/L (41-126); BUN/Creat Ratio 22.22 Ratio (12.00-20.00); Calcium 9.4 mg/dL (8.7-10.3); Carbon Dioxide 22.7 mmol/L (21.6-31.8); Chloride 107 mmol/L (96-109); Globulin 2.7 g/dL (1.6-3.3); Glucose 98 mg/dL (70-110); LDL Cholesterol,Calculated 155.8 mg/dL (0.0-131.0); Potassium 4.4 mmol/L (3.5-5.5); Sodium 140 mmol/L (135-145); Total Bilirubin 0.6 mg/dL (0.3-1.2); Total Protein 7.2 g/dL (6.2-8.2)
== END | disposition home or self-care (01) ==
LOC: LABWHC1 07:39
PROVIDERS: ATTEND Family Medicine
DX: Z00.00 Encounter for general adult medical examination without abnormal findings (principal)
CPT/HCPCS: 36415; 80053; 80061; 82306; 85025

== ENCOUNTER → 2024-10-01 | Outpatient (CLI) | payer OTHER ==
--- NOTE | 2024-10-01 14:55 | FL ---
Modified barium swallow. HISTORY: Dysphagia. Modified barium swallow was performed with the department of speech pathology. The patient was prese nted with various consistencies of barium. There is no evidence for aspiration or penetration. Full report is to follow from the department of speech pathology. Impression: Normal study. [facility], , 10/01/2024 2:52 PM
== END | disposition home or self-care (01) ==
LOC: RADFLMAIN 12:36
PROVIDERS: ATTEND Family Medicine
DX: R13.12 Dysphagia, oropharyngeal phase (principal)
CPT/HCPCS: 74230